=== PATIENT | female | born 1975 | race African-American/Black ===

== ENCOUNTER 2016-09-13 23:30 | Emergency (ER) | payer OTHER ==
[2016-09-13 23:43] VITALS: TEMP 97.8; BMI 29.5
[2016-09-13] MEDS ORDERED: ONDANSETRON 4 MG/2 ML VIAL ONE (23:47)
--- NOTE | 2016-09-14 01:30 | PDOC ---
History of Present Illness - General History Source: Patient Exam Limitations: No Limitations - History of Present Illness Initial Comments: 09/14/16 01:43 The patient is a 41 year old female (8 months ) with significant past medical history of asthma who presents to the ED with sudden onset of dizziness and vomiting prior to arrival. Patient reports around 11pm she was laying in bed when she got up to get some carrots. After laying back down she suddenly felt lightheaded and sat back up. Patient states her lightheadedness worsen after sitting up and she started to vomit. She reports 5 episodes of nonbloody vomit that also includes one episode in the ambulance. EMS administered zofran and patient states she felt better. She denies abdominal pain and diarrhea. Patient also states she was here earlier today because she was having contractions, where she was told she was not dilated and thus sent home. The patient denies fever, chills, cough, SOB, chest pain, and palpitations. The patient denies dysuria, hematuria, urgency, and frequency. Allergies: cephalexin, oxycodone Social History: No alcohol, tobacco, or drug use reported. 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 Emily Salinas <Senia Wynn - Last Filed: 09/14/16 01:43> - General History Source: Patient <Krishan Miller - Last Filed: 09/14/16 05:17> - General Chief Complaint: Lightheaded Stated Complaint: DIZZINESS, VOMITING Time Seen by Provider: 09/14/16 01:16 Past History <Senia Wynn - Last Filed: 09/14/16 01:43> - Past Medical History Asthma: Yes Suicide Attempt (Hx): No - Surgical History Abdominal Surgery: Yes (hernia repair as an infant) - Reproductive History Expected Date of Delivery: 10/05/16 (#): 3 Para: 1 Cervical CA: No Dysfunctional Uterine Bleeding: No Ectopic : No Endometrial CA: No Endometriosis: No Ovarian CA: No PID: No Polycystic Ovaries: No Therapeutic (s) & number: Yes (X1) Tubal Ligation: No Uterine Fibroids: No - Immunization History Immunization Up to Date: Yes - Psycho/Social/Smoking Cessation Hx Anxiety: Yes Suicidal Ideation: No Smoking Status: No Smoking History: Never smoked Have you smoked in the past 12 months: No Number of Cigarettes Smoked Daily: 0 Hx Alcohol Use: No Drug/Substance Use Hx: No Substance Use Type: Alcohol <Krishan Miller - Last Filed: 09/14/16 05:17> - Past Medical History Allergies/Adverse Reactions: Allergies Allergy/AdvReac Type Severity Reaction Status Date / Time cephalexin Allergy Severe Verified 09/13/16 23:40 oxycodone AdvReac Severe Itching Verified 09/13/16 23:40 cefilexin Allergy Severe Uncoded 09/13/16 23:40 Home Medications: Ambulatory Orders Folic Acid 0.8 mg PO DAILY 04/18/16 Pnv95/Ferrous Fumarate/FA [ Caplet] 1 each PO DAILY 04/18/16 Albuterol Sulfate Inhaler - [Ventolin Hfa Inhaler -] 2 inh PO Q4H PRN #1 inh 09/18 Fluticasone/Salmeterol [Advair Hfa 45-21 Mcg Inhaler] 2 inh PO Q12H #1 inhaler 07/04/16 Metoclopramide HCl [Reglan -] 10 mg PO TID #21 tablet 09/14/16 Nitrofurantoin Monohyd/M-Cryst [Macrobid] 100 mg PO BID #14 capsule 09/14/16 Review of Systems - Review of Systems Able to Perform ROS?: Yes Comments:: 09/14/16 01:43 CONSTITUTIONAL: +generalized weakness Absent: fever, no chills, no fatigue EYES: Absent: visual changes ENT: Absent: ear pain, no sore throat CARDIOVASCULAR: +lightheadedness Absent: chest pain, no palpitations RESPIRATORY: Absent: cough, no SOB GI: +vomiting Absent: abdominal pain, no constipation, no diarrhea GENITOURINARY: Absent: dysuria, no frequency, no hematuria MUSKULOSKELETAL: Absent: back pain, no arthralgia, no myalgia SKIN: Absent: rash NEURO: Absent: headache <Senia Wynn - Last Filed: 09/14/16 01:43> *Physical Exam - Vital Signs Last Vital Signs Temp Pulse Resp BP Pulse Ox 97.8 F 90 16 106/59 98 09/13/16 23:41 09/13/16 23:41 09/13/16 23:41 09/13/16 23:41 09/13/16 23:41 - Physical Exam Comments: 09/14/16 01:43 GENERAL: Well-appearing, well-nourished. No apparent distress. HEENT: Normocephalic, atraumatic. PERRL, EOM intact. CARDIOVASCULAR: Normal S1, S2. Regular rate and rhythm. PULMONARY: Clear to auscultation bilaterally. ABDOMEN: Soft, gravid, non-tender. EXTREMITIES: Normal ROM in all four extremities. No gross deformities. SKIN: Warm, dry. No rash NEUROLOGICAL: No focal neurological deficits. <Senia Wynn - Last Filed: 09/14/16 01:43> - Vital Signs Last Vital Signs Temp Pulse Resp BP Pulse Ox 97.8 F 90 16 106/59 98 09/13/16 23:41 09/13/16 23:41 09/13/16 23:41 09/13/16 23:41 09/13/16 23:41 <Krishan Miller - Last Filed: 09/14/16 05:17> ED Treatment Course - LABORATORY CBC & Chemistry Diagram: 09/14/16 02:58 09/14/16 02:58 <Krishan Miller - Last Filed: 09/14/16 05:17> Medical Decision Making - Medical Decision Making 09/14/16 05:17 Dr. Miller: The scribe's documentation has been prepared under my direction and personally reviewed by me in its entirery. I confirm that the note above accurately reflects all work, treatment, procedures, and medical decision making performed by me. <Krishan Miller - Last Filed: 09/14/16 05:17> *DC/Admit/Observation/Transfer - Attestations Scribe Attestion: 09/14/16 01:44 Documentation prepared by Senia Wynn, acting as medical assembly for Krishan Miller MD <Senia Wynn - Last Filed: 09/14/16 01:43> - Discharge Dispostion Admit: No <Krishan Miller - Last Filed: 09/14/16 05:17> Diagnosis at time of Disposition: UTI (urinary tract infection) Qualifiers: Urinary tract infection type: site unspecified Hematuria presence: without hematuria Qualified Code(s): N39.0 - Urinary tract infection, site not specified - Discharge Dispostion Disposition: HOME Condition at time of disposition: Stable - Prescriptions Prescriptions: Nitrofurantoin Monohyd/M-Cryst [Macrobid] 100 mg PO BID #14 capsule Metoclopramide HCl [Reglan -] 10 mg PO TID #21 tablet - Referrals Referrals: Emily Salinas MD [Primary Care Provider] - - Patient Instructions Printed Discharge Instructions: DI for Urinary Tract Infection (UTI), Medications and
[2016-09-14] MEDS ORDERED: SODIUM CHLORIDE 1,000 ML IV STA (01:40)
[2016-09-14 02:05] LABS: URINE APPEARANCE SL CLOUDY; URINE BILIRUBIN NEGATIVE (NEGATIVE); URINE BLOOD NEGATIVE (NEGATIVE); URINE COLOR LT. YELLOW; URINE GLUCOSE (UA) NEGATIVE (NEGATIVE); URINE KETONE NEGATIVE (NEGATIVE); URINE NITRITE NEGATIVE (NEGATIVE); URINE PROTEIN NEGATIVE (NEGATIVE); URINE UROBILINOGEN 0.2 E.U/dl E.U./dl (0.2-1.0)
[2016-09-14 02:07] LABS: URINE LEUK ESTERASE TRACE (NEGATIVE)
[2016-09-14 02:35] LABS: URINE BACTERIA RARE /hpf (NONE SEEN); URINE MUCUS RARE; URINE RBC 1 /hpf (0-3); URINE WBC 7 /hpf (3-5)
[2016-09-14 03:31] LABS: BASOPHIL 0.1 % (0-2.0); EOSINOPHIL 0.4 % (0-4.5); MCH 27.4 pg (25.7-33.7); MCHC 31.6 g/dl (32.0-36.0); MEAN CELL VOLUME 86.7 fl (80-96); MEAN PLT VOLUME 9.9 fl (7.5-11.1); NEUTROPHILS 78.6 % (42.8-82.8); PLATELET COUNT 160 K/MM3 (134-434); RDW 14.3 % (11.6-15.6); WHITE BLOOD COUNT 6.8 K/mm3 (4.0-10.0)
[2016-09-14 03:58] LABS: ALK PHOS 159 U/L (45-117); ANION GAP 14 (8-16); BILIRUBIN,TOTAL 0.4 mg/dL (0.2-1.0); CO2 22 mmol/L (21-32); CREATININE 0.7 mg/dL (0.55-1.02); GLUCOSE,RANDOM 108 mg/dL (74-106); MAGNESIUM 1.7 mg/dL (1.8-2.4); SGOT/AST 15 U/L (15-37); SGPT/ALT 16 U/L (12-78); TOT PROT 6.8 g/dl (6.4-8.2)
[2016-09-14] MEDS ORDERED: NITROFURANTOIN MACROCRYSTAL 50 MG CAPSULE (FP) ONE (05:12)
[2016-09-14] MEDS ORDERED: NITROFURANTOIN MACROCRYSTAL 50 MG CAPSULE (FP) PO SCH (05:15)
[2016-09-14] MEDS ORDERED: NITROFURANTOIN MACROCRYSTAL 50 MG CAPSULE (FP) PO ONE (05:18)
[2016-09-14 05:55] VITALS: BP 105/60; PULSE 74
== END 2016-09-14 05:29 | disposition home or self-care (01) ==
LOC: JER 23:30
DX: O23.43 Unspecified infection of urinary tract in pregnancy, third trimester (principal); Z3A.35 35 weeks gestation of pregnancy
CPT/HCPCS: 36415; 80053; 81003; 81015; 83690; 83735; 84703; 85025; 87086; 99282-25

== ENCOUNTER 2016-09-18 16:51 | Emergency (ER) | payer OTHER ==
[2016-09-18 16:57] VITALS: BP 144/90; PULSE 76; TEMP 97.1; BMI 31.7
[2016-09-18 19:08] LABS: BASOPHIL 0.4 % (0-2.0); EOSINOPHIL 1.6 % (0-4.5); MCH 27.5 pg (25.7-33.7); MCHC 31.7 g/dl (32.0-36.0); MEAN CELL VOLUME 86.6 fl (80-96); MEAN PLT VOLUME 9.3 fl (7.5-11.1); NEUTROPHILS 63.2 % (42.8-82.8); PLATELET COUNT 151 K/MM3 (134-434); RDW 14.2 % (11.6-15.6); WHITE BLOOD COUNT 4.5 K/mm3 (4.0-10.0)
--- NOTE | 2016-09-18 19:27 | PDOC ---
History of Present Illness - General History Source: Patient Exam Limitations: No Limitations - History of Present Illness Initial Comments: 09/18/16 19:37 The patient is a 41 year old female who is with history of asthma who returns to the ED for intermittent dizziness/lightheadedness. The patient was seen 4 days ago for lightheadedness with nausea and vomiting. She was discharged home with Macrobid for a UTI. Today she again became lightheaded with associated right ear ringing and "numbness" and chest discomfort with radiation to the back. She also complains of intermittent chills, no fever. She denies any nausea, vomiting, or diarrhea since her last ED visit. She denies cough, wheezing, or shortness of breath. She denies any vaginal bleeding or abdominal cramping. SALES REPRESENTATIVE UNIFORMS: Dr. Emily Salinas <Charlene Birmingham - Last Filed: 09/18/16 20:58> <Jael Lockwood - Last Filed: 09/18/16 21:44> - General Chief Complaint: Lightheaded Stated Complaint: 32WKS/LIGHTHEADED Time Seen by Provider: 09/18/16 18:05 Past History <Charlene Birmingham - Last Filed: 09/18/16 20:58> - Past Medical History Asthma: Yes Suicide Attempt (Hx): No - Surgical History Abdominal Surgery: Yes (hernia repair as an ) - Reproductive History Expected Date of Delivery: 10/05/16 (#): 3 Para: 1 Cervical CA: No Dysfunctional Uterine Bleeding: No Ectopic : No Endometrial CA: No Endometriosis: No Ovarian CA: No PID: No Polycystic Ovaries: No Therapeutic (s) & number: Yes (X1) Tubal Ligation: No Uterine Fibroids: No - Immunization History Immunization Up to Date: Yes - Psycho/Social/Smoking Cessation Hx Anxiety: Yes Suicidal Ideation: No Smoking Status: No Smoking History: Never smoked Have you smoked in the past 12 months: No Number of Cigarettes Smoked Daily: 0 Information on smoking cessation initiated: No Hx Alcohol Use: No Drug/Substance Use Hx: No Substance Use Type: Alcohol <Jael Lockwood - Last Filed: 09/18/16 21:44> - Past Medical History Allergies/Adverse Reactions: Allergies Allergy/AdvReac Type Severity Reaction Status Date / Time oxycodone Allergy Severe Itching Verified 09/18/16 16:54 Penicillins Allergy Severe Itching Verified 09/18/16 16:54 shellfish derived Allergy Severe Swelling Verified 09/18/16 16:54 cefalexin Allergy Severe Itching Uncoded 09/18/16 16:54 Home Medications: Ambulatory Orders Folic Acid 0.8 mg PO DAILY 04/18/16 Nitrofurantoin Monohyd/M-Cryst [Macrobid] 100 mg PO BID #14 capsule 09/14/16 Albuterol Sulfate Inhaler - [Ventolin Hfa Inhaler -] 1 puff IH PRN PRN 09/15/16 Vitamins (Sjr) - 1 tab PO DAILY 09/15/16 Review of Systems - Review of Systems Able to Perform ROS?: Yes Comments:: 09/18/16 19:41 CONSTITUTIONAL: Absent: fever, chills, diaphoresis, generalized weakness, malaise, loss of appetite HEENT: Absent: rhinorrhea, nasal congestion, throat pain, throat swelling, difficulty swallowing, mouth swelling, ear pain, eye pain, visual Changes CARDIOVASCULAR: Present: chest discomfort, lightheadedness/dizziness Absent: chest pain, syncope, palpitations, irregular heart rate, peripheral edema RESPIRATORY: Absent: cough, shortness of breath, dyspnea with exertion, orthopnea, wheezing, stridor, hemoptysis GASTROINTESTINAL: Absent: abdominal pain, abdominal distension, nausea, vomiting, diarrhea, constipation, melena, hematochezia GENITOURINARY: Absent: dysuria, frequency, urgency, hesitancy, hematuria, flank pain, genital pain MUSCULOSKELETAL: Absent: myalgia, arthralgia, joint swelling SKIN: Absent: rash, itching, pallor HEMATOLOGIC/IMMUNOLOGIC: Absent: easy bleeding, easy bruising, lymphadenopathy, frequent infections ENDOCRINE: Absent: unexplained weight gain, unexplained weight loss, heat intolerance, cold intolerance NEUROLOGIC: Present: lightheadedness/dizziness, right ear tinnitus with "numbness" sensation Absent: dizziness, unsteady gait, seizure, mental status changes, bladder or bowel incontinence PSYCHIATRIC: Absent: anxiety, depression, suicidal or homicidal ideation, hallucinations <Charlene Birmingham - Last Filed: 09/18/16 20:58> *Physical Exam - Vital Signs Last Vital Signs Temp Pulse Resp BP Pulse Ox 97.1 F L 76 18 144/90 100 09/18/16 16:54 09/18/16 16:54 09/18/16 16:54 09/18/16 16:54 09/18/16 16:54 - Physical Exam Comments: 09/18/16 19:47 GENERAL: Well developed, well nourished. Awake and alert. No acute distress. HEENT: Normocephalic, atraumatic. PERRLA, EOMI. No conjunctival pallor. Sclera are non- icteric. Moist mucous membranes. Oropharynx is clear. NECK: Supple. Full ROM. No JVD. Carotid pulses 2+ and symmetric, without bruits. No thyromegaly. No lymphadenopathy. CARDIOVASCULAR: Regular rate and rhythm. No murmurs, rubs, or gallops. Distal pulses are 2+ and symmetric. PULMONARY: No evidence of respiratory distress. Lungs clear to auscultation bilaterally. No wheezing, rales or rhonchi. ABDOMINAL: Protuberant abdomen. Non-tender. Non-distended. No rebound or guarding. No organomegaly. Normoactive bowel sounds. MUSCULOSKELETAL Normal range of motion at all joints. No bony deformities or tenderness. No CVA tenderness. EXTREMITIES: No cyanosis. No clubbing. No edema. No calf tenderness. SKIN: Warm and dry. Normal capillary refill. No rashes. No jaundice. NEUROLOGICAL: Alert, awake, appropriate. Cranial nerves 2-12 intact. No deficits to light touch and temperature in face, upper extremities and lower extremities. No motor deficits in the in face, upper extremities and lower extremities. Normoreflexic in the upper and lower extremities. Normal speech. Gait deferred. PSYCHIATRIC: Cooperative. Good eye contact. Appropriate mood and affect. <Charlene Birmingham - Last Filed: 09/18/16 20:58> - Vital Signs Last Vital Signs Temp Pulse Resp BP Pulse Ox 97.1 F L 76 18 144/90 100 09/18/16 16:54 09/18/16 16:54 09/18/16 16:54 09/18/16 16:54 09/18/16 16:54 <Jale Lockwood - Last Filed: 09/18/16 21:44> ED Treatment Course - LABORATORY CBC & Chemistry Diagram: 09/18/16 19:00 09/18/16 19:00 - ADDITIONAL ORDERS Additional order review: Laboratory Results 09/18/16 19:00 WBC 4.5 RBC 4.02 Hgb 11.0 Hct 34.8 MCV 86.6 MCHC 31.7 L RDW 14.2 Plt Count 151 MPV 9.3 Neutrophils % 63.2 Lymphocytes % 27.1 Monocytes % 7.7 Eosinophils % 1.6 D Basophils % 0.4 09/18/16 19:00 RBC 4.02 MCV 86.6 MCHC 31.7 L RDW 14.2 MPV 9.3 Neutrophils % 63.2 Lymphocytes % 27.1 Monocytes % 7.7 Eosinophils % 1.6 D Basophils % 0.4 <Charlene Birmingham - Last Filed: 09/18/16 20:58> - LABORATORY CBC & Chemistry Diagram: 09/18/16 19:00 09/18/16 19:00 - ADDITIONAL ORDERS Additional order review: 09/18/16 19:00 RBC 4.02 MCV 86.6 MCHC 31.7 L RDW 14.2 MPV 9.3 Neutrophils % 63.2 Lymphocytes % 27.1 Monocytes % 7.7 Eosinophils % 1.6 D Basophils % 0.4 <Jael Lockwood - Last Filed: 09/18/16 21:44> Medical Decision Making - Medical Decision Making 09/18/16 20:59 The patient states that she would like to go home since we have not found the cause of her dizziness. She wants to sign out AGAINST MEDICAL ADVICE. She has been given all of her results thus far and states she will follow up with her SCREEN PRINTER HELPER tomorrow. <Charlene Birmingham - Last Filed: 09/18/16 20:58> - Medical Decision Making 09/18/16 21:38 41-year-old female who is 33 weeks presents with intermittent dizziness over the past week. She states that she has numbness on her right ear and that she experiences tinnitus in her ear when she eats. she denies any anterior chest pain, shortness of breath, fever, nausea, vomiting or diarrhea, pelvic cramping or vaginal bleeding -she has an appt tomorrow with her SALES REPRESENTATIVE UNIFORMS -ekg is nsr @ 80 bpm cbc is wnl chemistry unremarkable pt left AMA before cardiac enzymes are back <Jael Lockwood - Last Filed: 09/18/16 21:44> *DC/Admit/Observation/Transfer - Attestations Scribe Attestion: 09/18/16 19:48 Documentation prepared by Charlene Birmingham, acting as associate medical director for Jael Lockwood MD. <Charlene Birmingham - Last Filed: 09/18/16 20:58> <Jael Lockwood - Last Filed: 09/18/16 21:44> Diagnosis at time of Disposition: Dizziness - Discharge Dispostion Disposition: AGAINST MEDICAL ADVICE
[2016-09-18] MEDS ORDERED: SODIUM CHLORIDE 1,000 ML IV STA (19:38)
[2016-09-18 19:51] LABS: ALBUMIN 2.8 g/dl (3.4-5.0); ANION GAP 8 (8-16); BILIRUBIN,TOTAL 0.8 mg/dL (0.2-1.0); CALCIUM 9.2 mg/dL (8.5-10.1); CO2 24 mmol/L (21-32); CREATININE 0.6 mg/dL (0.55-1.02); GLUCOSE,RANDOM 73 mg/dL (74-106); SGPT/ALT 17 U/L (12-78)
[2016-09-18 19:52] LABS: ALK PHOS 173 U/L (45-117); TOT PROT 6.7 g/dl (6.4-8.2)
[2016-09-18 19:57] LABS: SGOT/AST 29 U/L (15-37)
[2016-09-18 21:04] LABS: TROPONIN I < 0.02 ng/ml (0.00-0.05)
--- NOTE | 2016-09-19 16:22 | EKG ---
Test Reason : Blood Pressure : / mmHG Vent. Rate : 080 BPM Atrial Rate : 080 BPM P-R Int : 162 ms QRS Dur : 072 ms QT Int : 366 ms P-R-T Axes : 022 014 027 degrees QTc Int : 422 ms NORMAL SINUS RHYTHM NORMAL ECG WHEN COMPARED WITH ECG OF 11-JAN-2008 18:26, NO SIGNIFICANT CHANGE WAS FOUND Confirmed by ELHAM MARTINEZ MD ([id number]) on 09/19/2016 4:21:26 PM Referred By: Confirmed By:ELHAM MARTINEZ MD
== END 2016-09-18 21:42 | disposition left against medical advice (07) ==
LOC: JER 16:51
PROC: 3E0337Z Introduction of Electrolytic and Water Balance Substance into Peripheral Vein, Percutaneous Approach (ICD-10-PCS; principal; 2016-09-18)
DX: O99.89 Other specified diseases and conditions complicating pregnancy, childbirth and the puerperium (principal); R42 Dizziness and giddiness; Z3A.32 32 weeks gestation of pregnancy
CPT/HCPCS: 36415; 80053; 82550; 82553; 84484; 85025; 93005; 93010; 99282-25

== ENCOUNTER 2016-10-15 08:10 | Inpatient (IN) | payer OTHER ==
[2016-10-15] MEDS ORDERED: ELECTROLYTE-148 SOLN 1,000 ML IV SCH ×2 (08:30)
[2016-10-15] MEDS ORDERED: ELECTROLYTE-148 SOLN 500 ML IV ONE (08:30)
[2016-10-15] MEDS ORDERED: SODIUM PHOSPHATE/NA BIPHOS 133 ML ENEMA PR ONE (08:33)
[2016-10-15 08:58] LABS: BASOPHIL 0.2 % (0-2.0); EOSINOPHIL 0.3 % (0-4.5); MCH 28.5 pg (25.7-33.7); MCHC 32.7 g/dl (32.0-36.0); MEAN CELL VOLUME 87.1 fl (80-96); MEAN PLT VOLUME 9.7 fl (7.5-11.1); NEUTROPHILS 81.7 % (42.8-82.8); PLATELET COUNT 133 K/MM3 (134-434); RDW 14.7 % (11.6-15.6); WHITE BLOOD COUNT 7.6 K/mm3 (4.0-10.0)
[2016-10-15 09:00] VITALS: BMI 31.6
[2016-10-15 09:11] LABS: INR 1.02 (0.82-1.09); PROTHROMBIN TIME (PATIENT) 11.2 SEC (9.98-11.88)
[2016-10-15 09:13] LABS: ACTIVATED PTT 28.6 SECONDS (26.9-34.4)
[2016-10-15] MEDS ORDERED: FENTANYL/BUPIVACAINE/NS/PF - PCEA - 50 ML DISP.SYRIN EP SCH (09:15)
[2016-10-15 09:18] LABS: CALCIUM 8.7 mg/dL (8.5-10.1); CREATININE 0.7 mg/dL (0.55-1.02)
[2016-10-15] MEDS ORDERED: CITRIC ACID/SODIUM CITRATE 30 ML UNIT-DOSE CUP PO ONE (10:00)
--- NOTE | 2016-10-15 10:16 | HP ---
Past Medical History - Primary Care Physician PCP:: Mary Lockhart - Admission Chief Complaint: 41 yrs 40.2 weeks iup, previous c/section onset of LP since 3.00am , wants trial of History of Present Illness: pnc at [address] [place] [address] .wt gain 36 lbs work up : A Pos,, Hbsag neg , Rpr neg, Rubella pos, Quant neg, GBS neg , Hiv neg , ! hr Gtt 123 h/o Genetic counselling for AMA, , NT screen: LowPapp, A, , modified sequential neg serial sono for growth are done last sono : 10/11/16 , Vx m Post Placenta,, EFW 8'8", , JESSICA 8.59 , Bpp8/8. pt was evaluated i l&d for labor asses number of times History Source: Patient, Medical Record Limitations to Obtaining History: No Limitations - Past Medical History LIVING SUPERVISOR: No: CVA, Migraine, Seizure Cardiovascular: No: HTN, Murmur Pulmonary: Yes: Asthma Gastrointestinal: Yes: Constipation Renal/: Yes: UTI (rx during ) ...: 3 ...Para: 1 ...Term: 1 (06/15/2010 LFTCS due to non reassuring FHR , 7'8" , [facility]) ...: 0 ...Spon : 0 ...Induced : 1 ...Multiple Gestation: 0 ...LMP: 01/06/16 ... Weeks Gestation by Dates: 40.3 ...EDC by Dates: 10/12/16 ...EDC by Sono: 10/13/16 (40.2 weeks ) Heme/Onc: Yes: Anemia Infectious Disease: No: STD's Endocrine: No: Diabetes Insipidus, Diabetes Mellitus, Hypothyroidism (TFT during pregn normal) - Past Surgical History Past Surgical History: Yes: (06/15/2010) Hx Myomectomy: No Hx Transabdominal Cerclage: No - Smoking History Smoking history: Smoker current status UNK Have you smoked in the past 12 months: No Aproximately how many cigarettes per day: 0 - Alcohol/Substance Use Hx Alcohol Use: No History of Substance Use: reports: None Home Medications - Allergies Allergies/Adverse Reactions: Allergies Allergy/AdvReac Type Severity Reaction Status Date / Time oxycodone Allergy Severe Itching Verified 10/11/16 12:37 Penicillins Allergy Severe Itching Verified 10/11/16 12:37 shellfish derived Allergy Severe Swelling Verified 10/11/16 12:37 cefalexin Allergy Severe Itching Uncoded 10/11/16 12:37 - Home Medications Home Medications: Ambulatory Orders Folic Acid 0.8 mg PO DAILY 04/18/16 Vitamins (Sjr) - 1 tab PO DAILY 09/15/16 Ferrous Sulfate [Feosol] 325 mg PO DAILY 10/07/16 Fluticasone/Salmeterol [Advair Hfa 45-21 Mcg Inhaler] 1 inh PO DAILY 10/07/16 Physical Exam - Maternity Vital Signs: Vital Signs Temperature 97.4 F L 10/15/16 08:48 Pulse Rate 88 10/15/16 09:00 Respiratory Rate 20 10/15/16 09:00 Blood Pressure 118/69 10/15/16 09:00 O2 Sat by Pulse Oximetry (%) Constitutional: Yes: Well Nourished, Moderate Distress Eyes: Yes: WNL HENT: Yes: WNL, Normocephalic Neck: Yes: WNL Cardiovascular: Yes: WNL, Regular Rate and Rhythm Lungs: Clear to auscultation Breast(s): Yes: WNL - Abdominal Exam/OB Fundal Height: 40 Number of Fetuses: Single Presentation: Vertex Contractions: Yes Regularity: Irregular (6-7 min) Intensity: Moderate Monitor Mode: External Heart Rate (range): 120--130 Heart Rate Location: [facility] Category: II Accelerations: Uniform Decelerations: Variable (zenith 60 bpm at 8.34 am) - Vaginal Exam/OB Vaginal Bleediing: No Speculum Exam: No Effacement (%): 5 Amniotic Membrane Status: Intact Presentation: Vertex/Position (exam at 8.15am) Station: -2 - Physical Exam Musculoskeletal: Yes: WNL Extremities: Yes: WNL. No: Calf Tenderness Edema: Yes Edema: LLE: 1+, RLE: 1+ Integumentary: Yes: Incision (old pfannensteil scar), Tattoos Deep Tendon Reflex Grade: Normal +2 ...Motor Strength: WNL Psychiatric: Yes: WNL - Labs Lab Results: CBC, BMP 10/15/16 08:30 10/15/16 08:30 Laboratory Tests 10/15/16 08:30 INR 1.02 PTT (Actin FS) 28.6 Problem List - Problems (1) AMA (advanced maternal age) multigravida 35+ Code(s): O09.529 - SUPERVISION OF ELDERLY MULTIGRAVIDA, UNSPECIFIED TRIMESTER Qualifiers: Trimester: third trimester Qualified Code(s): O09.523 - Supervision of elderly multigravida, third trimester (2) Previous section Code(s): Z98.89 - OTHER SPECIFIED POSTPROCEDURAL STATES * DO NOT USE * (3) Post term over 40 weeks Code(s): O48.0 - POST-TERM (4) Desires (vaginal after ) trial Code(s): O34.21 - MATERNAL CARE FOR SCAR FROM PREVIOUS * DO NOT USE * Assessment/Plan 41 yrs , 40.2 weeks , previous c/s , is in labor. plan pt requuests trial epidural desired
--- NOTE | 2016-10-15 10:36 | PN ---
Progress Note, Labor Vaginal Exam #1 Labor Exam Date: 10/15/16 Labor Exam Time: 09:45 Heart Rate (range): 120-130 Dilatation: 6 Effacement (%): 100 Amniotic Membrane Status: Ruptured (AROM, no fluid, scalp electrode applied) Presentation: Vertex/Position Station: -2 Remarks: fhr cat-2 uc irregular 6-7 min epidural received at 9.30 am Selected Entries 10/15/16 09:00 Pulse Rate 88 Blood Pressure 118/69 Vaginal Exam #2 Labor Exam Date: 10/15/16 Labor Exam Time: 10:06 Heart Rate (range): 120-90 Dilatation: 6 Effacement (%): 100 Amniotic Membrane Status: Ruptured Presentation: Vertex/Position Station: -2 Remarks: FHR cat-2 , variable decel with late component zenih at 60 , duration 124 sec . position changed, IV fluid increased , O2 given uc are irregular 5-6 min V/S BP 71/37, pulse 90 bpm anesthesiologist notified trial abandoned Imp :Post Term Pregn, Failed Trial, Non Reassuring FHR Plan delivery by Repeat c/section
[2016-10-15 11:32] LABS: ARTERIAL BLOOD GAS BASE EXCESS -1.7 meq/l (-2-2); ARTERIAL BLOOD GAS HCO3 26.1 meq/L (22-26); ARTERIAL BLOOD GAS pH 7.27 (7.35-7.45)
[2016-10-15 11:35] LABS: ARTERIAL BLOOD GAS BASE EXCESS -2.4 meq/l (-2-2); ARTERIAL BLOOD GAS pH 7.34 (7.35-7.45)
[2016-10-15 11:37] LABS: PT. ON O2? no
[2016-10-15 11:38] LABS: ARTERIAL BLOOD GAS PO2 16.8 mmHg (80-100)
[2016-10-15 11:39] LABS: ARTERIAL BLD GAS O2 SATURATION 23.7 % (90-98.9)
[2016-10-15 11:40] LABS: PT. ON O2? no
[2016-10-15 11:41] LABS: ARTERIAL BLOOD GAS PO2 27.9 mmHg (80-100)
[2016-10-15] MEDS ORDERED: IBUPROFEN 800 MG/8 ML IJ IVPB PRN (12:02)
[2016-10-15] MEDS ORDERED: METHYLERGONOVINE MALEATE 0.2 MG/1 ML AMP IM PRN (12:02)
[2016-10-15] MEDS ORDERED: SENNOSIDES/DOCUSATE COMBO (SENNA PLUS) TABLET (UD) PO PRN (12:02)
--- NOTE | 2016-10-15 12:23 | OP ---
Operative Note - Note: Operative Date: 10/15/16 Pre-Operative Diagnosis: 40.2 weeks, Failed , Nonreassuring FHR Operation: Repeat LFTC/Section Findings: 11.11 am Baby Boy, ROP position, cord around neckx1, 9/9, Wt 8'2" No fluid , terminal thick meconium noted both tubes & ovaries normal . Dr Schmitt manufacturing design engineer was present in the room Surgeon: Mary Lockhart Program Evaluator: Jonh Bejarano Anesthesiologist/RN MIDWIFE: Mejia Palacio Anesthesia: Spinal Specimens Removed: cord segment for cord blood gas. cord blood sample. placenta Estimated Blood Loss (mls): 800 Drains, Volume Out (mls): 200 (gambino output, radha color urine ) Fluid Volume Replaced (mls): 1,100 (IV Clindamycin 900 mg prior to incision was given ) Operative Report Dictated: Yes
--- NOTE | 2016-10-15 12:40 | PN ---
Delivery - Delivery Section: Repeat, Low Flap Transverse (Indication : 40.2 weeks, Previous C/Section, failed , Non Reassuring FHR) Type of Anesthesia: Epidural EBL (cc): 800 (gambino out put 200ml intraop radha color ) Delivery, Single - Stages of Labor Date 1st Stage Initiatied: 10/15/16 Time 1st Stage Initiated: 03:00 Date of Delivery: 10/15/16 Time of Delivery: 11:11 Date Placenta Delivered: 10/15/16 Time Placenta Delivered: 11:12 Placenta: Yes: Manual Removal, Uterine Exploration - Condition of Utilization Supervisor/Radio Division Lieutenant Present: Yes Name: Groening,Kala Gender: Male Weight: 8 lb 2 oz Position: Right, OP Total Hours ROM (Hrs/Mins): 1hr 27min - 1 Minute Total Score: 9 5 Minutes Total Score: 9 - [place] Feeding Plan Initial Plan: Exclusive throughout hospitalization Remarks - Remarks Remarks: 41 yrs , 40.2 weeks , previous c/section, admitted in labor PNC at [address] [place] [address] GBS neg epidural labor analgesia was given recurrent variable decels were noted , non reaasuring FHR diagnosed IV Clindamycin 900 mg prior to incision was given Intraop course uneventful
[2016-10-15] MEDS: D5W-LR W/ 20 UNITS OXYTOCIN 1,000 ML IV SCH ×2 (12:45→20:19)
[2016-10-15] MEDS: CLINDAMYCIN 600MG PREMIX IVPB 50 ML IVPB SCH (18:14)
[2016-10-15] MEDS: FLUTICASONE/SALMETEROL 100 MCG/50 MCG DISKUS IH SCH (22:23)
[2016-10-16] MEDS: CLINDAMYCIN 600MG PREMIX IVPB 50 ML IVPB SCH ×2 (01:14→10:25)
[2016-10-16 07:40] LABS: BASOPHIL 0.2 % (0-2.0); EOSINOPHIL 0.5 % (0-4.5); MCH 28.7 pg (25.7-33.7); MCHC 33.2 g/dl (32.0-36.0); MEAN CELL VOLUME 86.6 fl (80-96); MEAN PLT VOLUME 9.4 fl (7.5-11.1); NEUTROPHILS 78.4 % (42.8-82.8); PLATELET COUNT 118 K/MM3 (134-434); RDW 14.7 % (11.6-15.6); WHITE BLOOD COUNT 7.4 K/mm3 (4.0-10.0)
--- NOTE | 2016-10-16 08:03 | PN ---
Post Progress Note - Subjective Subjective: no c/o pain . not voided since gambino is taken out Post Day: 1 Type of Delivery: Repeat C/S Vital Signs: Vital Signs Temperature 98.2 F 10/16/16 05:22 Pulse Rate 87 10/16/16 05:22 Respiratory Rate 20 10/16/16 07:00 Blood Pressure 111/65 10/16/16 05:22 O2 Sat by Pulse Oximetry (%) 100 10/15/16 10:25 Breast Exam: Yes: Soft, Other (BF ). No: Engorged Uterus: Yes: Fundus Firm, Fundus below umbilicus, Non-tender Incision: Yes: Dressing dry and intact. No: Redness, Oozing Abdomen/GI: Yes: Abdomen soft (bs active ), Tolerating PO (clear liqiuds ). No : Abdominal Distention, Tender, Passing flatus Lochia: Yes: Rubra Lochia, amount: Moderate Extremities: Yes: Calves non-tender Perineum: Yes: Intact Activity: Other (oob in chair) - Labs Labs: CBC WBC 7.4 K/mm3 (4.0-10.0) 10/16/16 06:50 RBC 3.71 M/mm3 (3.60-5.2) 10/16/16 06:50 Hgb 10.7 GM/dL (10.7-15.3) 10/16/16 06:50 Hct 32.1 % (32.4-45.2) L 10/16/16 06:50 MCV 86.6 fl (80-96) 10/16/16 06:50 MCHC 33.2 g/dl (32.0-36.0) 10/16/16 06:50 RDW 14.7 % (11.6-15.6) 10/16/16 06:50 Plt Count 118 K/MM3 (134-434) L 10/16/16 06:50 MPV 9.4 fl (7.5-11.1) 10/16/16 06:50 Neutrophils % 78.4 % (42.8-82.8) 10/16/16 06:50 Lymphocytes % 13.4 % (8-40) 10/16/16 06:50 Monocytes % 7.5 % (3.8-10.2) 10/16/16 06:50 Eosinophils % 0.5 % (0-4.5) 10/16/16 06:50 Basophils % 0.2 % (0-2.0) 10/16/16 06:50 Other Findings, Remarks: maik out put adequate Problem List - Problems (1) AMA (advanced maternal age) multigravida 35+ Code(s): O09.529 - SUPERVISION OF ELDERLY MULTIGRAVIDA, UNSPECIFIED TRIMESTER Qualifiers: Trimester: third trimester Qualified Code(s): O09.523 - Supervision of elderly multigravida, third trimester (2) Previous section Code(s): Z98.89 - OTHER SPECIFIED POSTPROCEDURAL STATES * DO NOT USE * (3) Post term over 40 weeks Code(s): O48.0 - POST-TERM (4) Desires (vaginal after ) trial Code(s): O34.21 - MATERNAL CARE FOR SCAR FROM PREVIOUS * DO NOT USE * Assessment/Plan stable plan ct po care . encourage ambulation, po fluids , deep breathing
[2016-10-16] MEDS: PRENATAL VITAMINS W/ FOLIC ACID TABLET (FP) PO SCH (09:01)
--- NOTE | 2016-10-16 09:42 | OP ---
DATE OF OPERATION: 10/15/2016 PREOPERATIVE DIAGNOSIS: A 40.2 weeks' failed vaginal after section, nonreassuring heart. OPERATION: Repeat low flap transverse section. SURGEON: Mary Lockhart MD FARM CONTRACTOR BUYER: ERWIN Soto ANESTHESIOLOGIST: Mejia Palacio MD ANESTHESIA: Epidural. FINDINGS: This is a 41-year-old 3, para 1-0-1-1, 40.2 weeks' gestation, presented with onset of labor since 3 a.m. and she was 5 cm dilated., Repeated variable decelerations with late component was noted. Her membranes were ruptured She was 6 cm dilated. She received epidural for labor analgesia. Due to recurrent decelerations, it was decided to deliver the patient by repeat section. PROCEDURE: Abdomen was shaved, prepped. Perez catheter was placed. Patient was taken to the operating room table. Epidural analgesia was converted into epidural anesthesia and then patient was in supine position. Abdomen was painted and draped in the usual manner. Pfannenstiel incision was made through previous scar. Skin, subcutaneous tissue, anterior rectus sheath were incised transversely bleeding points were clamped and cauterized. Rectus muscle was from the rectus sheath. Parietal peritoneum was opened vertically. Bladder Peritoneum was incised transversely and the lower uterine segment was incised transversely. There was no fluid and the baby was delivered from ROP position. Cord around the neck was untangled and the baby was delivered at 11:11 a.m. Cord was clamped, cut. Cord blood was collected immediately. As the baby's head was taken out, oral and nasal suction were done. Baby was handed over to the enforcement officer, Dr. Schmitt, who was present in the room. Apgars were 9 and 9. Baby's weight was 8.'1." Cord segment was collected for the cord blood gases, which was normal and then cord blood was collected. Placenta was removed completely with the membranes. Uterine cavity was cleaned and the incision was closed. First layer was a continuous locking with a Biosyn 0 suture which was taken. Second layer was a continuous intermittent locking with a Biosyn 0 suture which was taken. Hemostasis was noted. There was extension on the left side into the vagina down, which was also sutured in the same manner as the first layer and as the second layer. Visceral peritoneum, bladder peritoneum were closed also with a Biosyn 0 suture. Hemostasis was verified. Both tubes and ovaries were normal. Irrigation was done. The sponge, instrument, and needle count were correct. Then the closure of the abdomen was done. Parietal peritoneum was closed with 0 Vicryl suture. Muscles were approximated together with interrupted suture of the Vicryl 0. Hemostasis was checked underneath the rectus sheath flaps. Then the anterior rectus sheath was closed with 0 Vicryl suture; continuous sutures were taken. The skin was mobilized from underneath scar and hemostasis was checked and subcutaneous tissue. Some interrupted sutures were taken in subcutaneous tissue with 0 Vicryl suture and the skin was approximated with armida. Pressure dressing was given. Gauze was removed from the vagina. ESTIMATED BLOOD LOSS: Was 800 mL. INTRAOPERATIVE URINE OUTPUT: Was 200 mL; it was radha color. She received 900 mg IV clindamycin prior to the incision. Patient is allergic to PENICILLIN. Antonio [id number] MTDD
[2016-10-16] MEDS: FLUTICASONE/SALMETEROL 100 MCG/50 MCG DISKUS IH SCH ×2 (10:23→22:28)
--- NOTE | 2016-10-16 10:31 | PN ---
Progress Note (short form) - Note Progress Note: Anesthesia POD#1 S/P under spinal and duramorph Eating and drinking well,no N/V,good strength in her legs.pain is bearable. VSS No complications to anesthesia seen. Shelby Chao MD.
[2016-10-16] MEDS: ENOXAPARIN NA (PORCINE) 40 MG/0.4 ML DISP.SYRIN SQ SCH (11:31)
[2016-10-16] MEDS: IBUPROFEN 600 MG TABLET (FP) PO PRN ×2 (17:17→23:23)
[2016-10-16] MEDS: SIMETHICONE 80 MG TAB.CHEW (FP) PO PRN ×2 (17:17→23:23)
[2016-10-16] MEDS: ACETAMINOPHEN 325 MG TABLET (FP) PO PRN ×2 (17:17→23:22)
[2016-10-16] MEDS: D5W-LR W/ 20 UNITS OXYTOCIN 1,000 ML IV SCH (18:12)
[2016-10-16] MEDS: FERROUS SO4 325 MG TABLET (FP) PO SCH (21:14)
[2016-10-16] MEDS: BISACODYL 10 MG SUPP.RECT RC PRN (21:17)
[2016-10-17] MEDS: IBUPROFEN 600 MG TABLET (FP) PO PRN ×5 (05:48→22:10)
[2016-10-17] MEDS: SIMETHICONE 80 MG TAB.CHEW (FP) PO PRN ×5 (05:49→22:10)
[2016-10-17] MEDS: ACETAMINOPHEN 325 MG TABLET (FP) PO PRN ×5 (05:49→22:10)
[2016-10-17] MEDS: FLUTICASONE/SALMETEROL 100 MCG/50 MCG DISKUS IH SCH ×2 (09:15→21:11)
[2016-10-17] MEDS: PRENATAL VITAMINS W/ FOLIC ACID TABLET (FP) PO SCH (09:16)
[2016-10-17] MEDS: FERROUS SO4 325 MG TABLET (FP) PO SCH ×2 (09:16→21:14)
[2016-10-17] MEDS: ENOXAPARIN NA (PORCINE) 40 MG/0.4 ML DISP.SYRIN SQ SCH (09:16)
--- NOTE | 2016-10-17 09:16 | PN ---
Post Progress Note - Subjective Subjective: Doing well. Ambulating, voiding, passing flatus, tolerating regular diet, pain well controlled. No N/V/SOB/CP. Post Day: 2 Type of Delivery: Repeat C/S Vital Signs: Vital Signs Temperature 98.3 F 10/17/16 08:33 Pulse Rate 83 10/17/16 08:33 Respiratory Rate 20 10/17/16 08:33 Blood Pressure 121/65 10/16/16 21:10 O2 Sat by Pulse Oximetry (%) 100 10/15/16 10:25 Breast Exam: Yes: Soft Uterus: Yes: Fundus Firm Incision: Yes: Nico intact Abdomen/GI: Yes: Abdomen soft, Passing flatus, Tolerating PO Lochia: Yes: Rubra Lochia, amount: Small Extremities: Yes: Calves non-tender Perineum: Yes: Intact Activity: Ambulating - Labs Labs: CBC WBC 7.4 K/mm3 (4.0-10.0) 10/16/16 06:50 RBC 3.71 M/mm3 (3.60-5.2) 10/16/16 06:50 Hgb 10.7 GM/dL (10.7-15.3) 10/16/16 06:50 Hct 32.1 % (32.4-45.2) L 10/16/16 06:50 MCV 86.6 fl (80-96) 10/16/16 06:50 MCHC 33.2 g/dl (32.0-36.0) 10/16/16 06:50 RDW 14.7 % (11.6-15.6) 10/16/16 06:50 Plt Count 118 K/MM3 (134-434) L 10/16/16 06:50 MPV 9.4 fl (7.5-11.1) 10/16/16 06:50 Neutrophils % 78.4 % (42.8-82.8) 10/16/16 06:50 Lymphocytes % 13.4 % (8-40) 10/16/16 06:50 Monocytes % 7.5 % (3.8-10.2) 10/16/16 06:50 Eosinophils % 0.5 % (0-4.5) 10/16/16 06:50 Basophils % 0.2 % (0-2.0) 10/16/16 06:50 Assessment/Plan 41 P2 POD#2 s/p R C/S, doing well. VSS. AF. Hct stable -Routine post op care -Ambulate -PO pain medication -Regular diet -f/u POD3 CBC -anticipate d/c home POD3/4
[2016-10-17] MEDS ORDERED: DIPHTH,PERTUSS(ACELL),TET 0.5 ML DISP.SYRIN IM ONE (10:00)
[2016-10-17] MEDS ORDERED: INFLUENZA VACCINE 60 MCG/0.5 ML (P/F DISP.SYRIN 16-17) IM ONE (11:00)
[2016-10-17] MEDS ORDERED: PNEUMOC 13-VAL CONJ-DIP CRM/PF 0.5 ML DISP.SYRIN IM ONE (18:00)
[2016-10-17] MEDS ORDERED: PNEUMOCOCCAL 23 VACCINE 0.5 ML VIAL IM ONE (18:00)
[2016-10-17] MEDS: BISACODYL 10 MG SUPP.RECT RC PRN (18:07)
[2016-10-18 06:53] LABS: BASOPHIL 0.2 % (0-2.0); EOSINOPHIL 1.9 % (0-4.5); MCH 28.7 pg (25.7-33.7); MCHC 32.9 g/dl (32.0-36.0); MEAN CELL VOLUME 87.1 fl (80-96); MEAN PLT VOLUME 9.4 fl (7.5-11.1); NEUTROPHILS 75.9 % (42.8-82.8); PLATELET COUNT 125 K/MM3 (134-434); WHITE BLOOD COUNT 6.2 K/mm3 (4.0-10.0)
[2016-10-18] MEDS: PRENATAL VITAMINS W/ FOLIC ACID TABLET (FP) PO SCH (09:33)
[2016-10-18] MEDS: ENOXAPARIN NA (PORCINE) 40 MG/0.4 ML DISP.SYRIN SQ SCH (09:33)
[2016-10-18] MEDS: FLUTICASONE/SALMETEROL 100 MCG/50 MCG DISKUS IH SCH ×2 (09:33→21:56)
--- NOTE | 2016-10-18 09:54 | PN ---
Post Progress Note - Subjective Subjective: c/o abdominal discomfort no nausea or vomiting passed flatus after rectal tube insert last night, felt relieved BM not satisfactory Post Day: 3 Type of Delivery: Repeat C/S Vital Signs: Vital Signs Temperature 97.7 F 10/18/16 08:22 Pulse Rate 92 H 10/18/16 08:22 Respiratory Rate 20 10/18/16 08:22 Blood Pressure 118/78 10/18/16 08:22 O2 Sat by Pulse Oximetry (%) 100 10/15/16 10:25 Breast Exam: Yes: Soft, Other (BF ). No: Engorged Uterus: Yes: Fundus Firm, Fundus below umbilicus Incision: Yes: [place] intact. No: Redness, Oozing Abdomen/GI: Yes: Abdomen soft, Passing flatus, Tolerating PO (diet). No: Abdominal Distention, Tender Lochia: Yes: Rubra Lochia, amount: Moderate Extremities: Yes: Calves non-tender Perineum: Yes: Intact Activity: Ambulating - Labs Labs: CBC WBC 6.2 K/mm3 (4.0-10.0) 10/18/16 06:10 RBC 3.42 M/mm3 (3.60-5.2) L 10/18/16 06:10 Hgb 9.8 GM/dL (10.7-15.3) L 10/18/16 06:10 Hct 29.8 % (32.4-45.2) L 10/18/16 06:10 MCV 87.1 fl (80-96) 10/18/16 06:10 MCHC 32.9 g/dl (32.0-36.0) 10/18/16 06:10 RDW 15.0 % (11.6-15.6) 10/18/16 06:10 Plt Count 125 K/MM3 (134-434) L 10/18/16 06:10 MPV 9.4 fl (7.5-11.1) 10/18/16 06:10 Neutrophils % 75.9 % (42.8-82.8) 10/18/16 06:10 Lymphocytes % 15.5 % (8-40) 10/18/16 06:10 Monocytes % 6.5 % (3.8-10.2) 10/18/16 06:10 Eosinophils % 1.9 % (0-4.5) D 10/18/16 06:10 Basophils % 0.2 % (0-2.0) 10/18/16 06:10 Problem List - Problems (1) AMA (advanced maternal age) multigravida 35+ Code(s): O09.529 - SUPERVISION OF ELDERLY MULTIGRAVIDA, UNSPECIFIED TRIMESTER Qualifiers: Trimester: third trimester Qualified Code(s): O09.523 - Supervision of elderly multigravida, third trimester (2) Previous section Code(s): Z98.89 - OTHER SPECIFIED POSTPROCEDURAL STATES * DO NOT USE * (3) Post term over 40 weeks Code(s): O48.0 - POST-TERM (4) Desires (vaginal after ) trial Code(s): O34.21 - MATERNAL CARE FOR SCAR FROM PREVIOUS * DO NOT USE * Assessment/Plan anemia Plan : encourage ambulation fleets enema
[2016-10-18] MEDS: FERROUS SO4 325 MG TABLET (FP) PO SCH ×2 (12:00→21:56)
[2016-10-18] MEDS: SIMETHICONE 80 MG TAB.CHEW (FP) PO PRN ×2 (18:21→22:19)
[2016-10-18] MEDS: ACETAMINOPHEN 325 MG TABLET (FP) PO PRN ×2 (18:22→22:20)
[2016-10-18] MEDS: IBUPROFEN 600 MG TABLET (FP) PO PRN ×2 (18:24→22:19)
[2016-10-18] MEDS ORDERED: SODIUM PHOSPHATE/NA BIPHOS 133 ML ENEMA RC ONE (18:30)
--- NOTE | 2016-10-19 07:07 | PN ---
Post Progress Note - Subjective Subjective: had a small dc from incision, no erythema Post Day: 4 Type of Delivery: Repeat C/S Vital Signs: Vital Signs Temperature 98.0 F 10/18/16 22:00 Pulse Rate 94 H 10/18/16 22:00 Respiratory Rate 20 10/18/16 22:00 Blood Pressure 129/75 10/18/16 22:00 O2 Sat by Pulse Oximetry (%) 100 10/15/16 10:25 Breast Exam: Yes: Soft Incision: Yes: Nico intact Abdomen/GI: Yes: Abdomen soft Lochia: Yes: Rubra Lochia, amount: Small Extremities: Yes: Calves non-tender Perineum: Yes: Intact Activity: Ambulating - Labs Labs: CBC WBC 6.2 K/mm3 (4.0-10.0) 10/18/16 06:10 RBC 3.42 M/mm3 (3.60-5.2) L 10/18/16 06:10 Hgb 9.8 GM/dL (10.7-15.3) L 10/18/16 06:10 Hct 29.8 % (32.4-45.2) L 10/18/16 06:10 MCV 87.1 fl (80-96) 10/18/16 06:10 MCHC 32.9 g/dl (32.0-36.0) 10/18/16 06:10 RDW 15.0 % (11.6-15.6) 10/18/16 06:10 Plt Count 125 K/MM3 (134-434) L 10/18/16 06:10 MPV 9.4 fl (7.5-11.1) 10/18/16 06:10 Neutrophils % 75.9 % (42.8-82.8) 10/18/16 06:10 Lymphocytes % 15.5 % (8-40) 10/18/16 06:10 Monocytes % 6.5 % (3.8-10.2) 10/18/16 06:10 Eosinophils % 1.9 % (0-4.5) D 10/18/16 06:10 Basophils % 0.2 % (0-2.0) 10/18/16 06:10 Assessment/Plan as above oob reg diet feels better
[2016-10-19 09:50] VITALS: BP 127/74; PULSE 89; TEMP 98.4
[2016-10-19] MEDS: ENOXAPARIN NA (PORCINE) 40 MG/0.4 ML DISP.SYRIN SQ SCH (10:47)
[2016-10-19] MEDS: FLUTICASONE/SALMETEROL 100 MCG/50 MCG DISKUS IH SCH (10:48)
[2016-10-19] MEDS: PRENATAL VITAMINS W/ FOLIC ACID TABLET (FP) PO SCH (10:48)
[2016-10-19] MEDS: FERROUS SO4 325 MG TABLET (FP) PO SCH (10:48)
[2016-10-19] MEDS: IBUPROFEN 600 MG TABLET (FP) PO PRN (10:52)
[2016-10-19] MEDS: ACETAMINOPHEN 325 MG TABLET (FP) PO PRN (10:53)
[2016-10-19] MEDS: SIMETHICONE 80 MG TAB.CHEW (FP) PO PRN (10:53)
--- NOTE | 2016-10-19 12:32 | DS ---
Physical Exam-JACQUARD LOOM WEAVER Vital Signs: Vital Signs Temperature 98.4 F 10/19/16 09:43 Pulse Rate 89 10/19/16 09:43 Respiratory Rate 20 10/19/16 09:43 Blood Pressure 127/74 10/19/16 09:43 O2 Sat by Pulse Oximetry (%) 100 10/15/16 10:25 Constitutional: Yes: Well Nourished, Obese, Pallor Eyes: Yes: WNL HENT: Yes: WNL Neck: Yes: WNL Cardiovascular: Yes: WNL Respiratory: Yes: WNL Gastrointestinal: Yes: WNL, Normal Bowel Sounds, Soft, Abdomen, Obese, Distention (mild), Other (bm done) Renal/: Yes: Other (voiding without difficulty) ....Post : Yes: Uterus firm, Uterus non-tender (below umblicus), Moderate lochia rubra Breast(s): Yes: WNL (not engorged . BF) Musculoskeletal: Yes: WNL Extremities: Yes: WNL. No: Calf Tenderness Edema: Yes Edema: LLE: 1+, RLE: 1+ Integumentary: Yes: WNL, Tattoos Wound/Incision: Yes: Clean/Dry, Well Approximated, Steri Strips, Open to air, Nico Removed. No: Bleeding, Excoriated Neurological: Yes: WNL ...Motor Strength: WNL Psychiatric: Yes: WNL, Alert, Oriented Labs: CBC, BMP 10/18/16 06:10 10/15/16 08:30 Delivery - Delivery Section: Repeat, Low Flap Transverse (Indication : 40.2 weeks, Previous C/Section, failed , Non Reassuring FHR) Type of Anesthesia: Epidural Episiotomy/Laceration: None EBL (cc): 800 Delivery, Single - Stages of Labor Date 1st Stage Initiatied: 10/15/16 Time 1st Stage Initiated: 03:00 Date of Delivery: 10/15/16 Time of Delivery: 11:11 Time Placenta Delivered: 11:12 Placenta: Yes: Manual Removal, Uterine Exploration - Condition of Electric Motors Salesperson/Building Maintenance Technician Present: Yes Name: Groening,Kala Infant Gender: Male Weight: 8 lb 2 oz Position: Right, OT Total Hours ROM (Hrs/Mins): 2H 26MIN - 1 Minute Total Score: 9 5 Minutes Total Score: 9 - Feeding Plan Initial Plan: Exclusive throughout hospitalization Remarks - Remarks Remarks: 41 yrs , 40.2 weeks , previous c/section, admitted in labor PNC at [address] [place] [address] GBS neg epidural labor analgesia was given recurrent variable decels were noted , non reaasuring FHR diagnosed IV Clindamycin 900 mg prior to incision was given Intraop course uneventful . post op unevntful except gaseous discomfort Anemia counselled Discharge today 10/19/16 Discharge Summary Reason For Visit: LABOR Current Active Problems AMA (advanced maternal age) multigravida 35+ (Acute) Delivery by (planned) section occurring after 37 completed weeks of gestation but before 39 completed weeks gestation due to (spontaneous) onset of labor, with mention of complication (Acute) Desires (vaginal after ) trial (Acute) Post term over 40 weeks (Acute) Previous section (Acute) Condition: Stable - Instructions Diet, Activity, Other Instructions: Post Instructions DIET: Continue good diet high in protein, calcium, and iron rich foods. Drink at least eight (8) glasses of water daily in addition to other fluids. ct Regular diet MEDICATIONS: Continue vitamins and iron as previously directed. Motrin and Tylenol may be taken for minor discomfort. ACTIVITY: Mild to moderate exercise may be started in two (2) weeks. Take frequent rest periods. Resume normal activity after six (6) week check up. WOUND CARE OF OPERATIVE SITE: Continue use of perineal bottle until vaginal discharge stops. Keep area clean. Shower daily. Keep abdominal wound dry. Report any drainage or redness to physician. Tub baths, tampons and douches are not permitted for [address] Breast feeding & or Bottle feeding BREAST CARE: (For those that are not breast feeding): If engorgement occurs: Wear tight fitting bra. Take Tylenol or Motrin for pain. Apply cold packs (ice in bags to each breast ) FAMILY PLANNING: There are many control alternatives to pursue and they should be discussed at your first office visit. You may resume sexual activity after your six (6) week check up. (Remember, breast feeding is not a contraceptive) NEXT PHYSICIAN APPOINTMENT: Be certain to call for a one (1) week appointment, unless otherwise directed. Call Clinic or got to Emergency Dept if you have any of the following: Heavy vaginal bleeding Painful urination Leg pain Unusual odor noted to vaginal bleeding High fever Red streaking noted on breast Referrals: Mary Lockhart MD [Staff Physician] - Disposition: HOME - Home Medications Comprehensive Discharge Medication List: Ambulatory Orders Folic Acid 0.8 mg PO DAILY 04/18/16 Vitamins (Sjr) - 1 tab PO DAILY 09/15/16 Ferrous Sulfate [Feosol] 325 mg PO DAILY 10/07/16 Acetaminophen [Tylenol .Regular Strength -] 650 mg PO Q4H PRN #0 tablet Ferrous Sulfate [Feosol] 325 mg PO BID #60 ud 10/18/16 Ibuprofen [Motrin -] 600 mg PO Q4H PRN #30 tablet 10/18/16 Vitamins (Sjr) - 1 tab PO DAILY #30 tablet 10/18/16 Salmeterol/Fluticasone [Advair 100Mcg/50Mcg -] 1 puff IH BID inhaler 10/18/16
--- NOTE | 2016-10-20 09:48 | PATH ---
Surgical Pathology Report Patient Name: EASTON MENDEZ [facility]. Rec. #: [id number] /Age/Gender: 1975 (Age: 41) / F Account: [id number] Location: [facility] OBS/THERMOSPRAY OPERATOR Taken: 10/15/2016 Received: 10/16/2016 Reported: 10/20/2016 Physicians: Mary Lockhart M.D. Specimen(s) Received PLACENTA Clinical History , 40.2 gestational weeks Repeat c/section in labor Final Diagnosis PLACENTA, DELIVERY: FOCALLY DISRUPTED THIRD TRIMESTER PLACENTA WITH MILD PREVILLOUS, PERIVILLOUS, AND PRECHORIONIC FIBRIN DEPOSITION, THREE VESSEL UMBILICAL CORD, AND PLACENTAL MEMBRANES WITH ACUTE CHORIOAMNIONITIS. Electronically Signed Ge Olson M.D. Gross Description The specimen is received fresh, labeled "placenta" and is a 454 gram, 19.0 x 13.5 x 2.5 cm. placenta with attached membranes and umbilical cord. The attached membranes are poole with focal opacities and insert marginally. The umbilical cord measures 16 cm in length and averages 1.2 cm in diameter. The cord inserts eccentrically, 4 cm to the nearest margin. No true knots or strictures are identified. Cut surface of the umbilical cord reveals 3 vessels. The surface is cavanaugh-blue with fibrin deposition and appropriate caliber vessels. The maternal surface is red-brown with focal defects. Sectioning reveals red-brown, spongy parenchyma. No focal lesions are identified. Appliance Counselor sections are submitted in three cassettes as follows: 1- membrane rolls and umbilical cord; 2-3- full thickness sections of placenta. 10/18/2016 [facility]10/18/2016
== END 2016-10-19 14:15 | disposition home or self-care (01) | DRG 766 ==
LOC: JLDR 08:10 → J3W 13:40
PROVIDERS: ADMIT Obstetrics & Gynecology; ATTEND Obstetrics & Gynecology
PROC: 10D00Z1 Extraction of Products of Conception, Low, Open Approach (ICD-10-PCS; principal; 2016-10-15)
PROC: 10907ZC Drainage of Amniotic Fluid, Therapeutic from Products of Conception, Via Natural or Artificial Opening (ICD-10-PCS; 2016-10-15)
DX: O76 Abnormality in fetal heart rate and rhythm complicating labor and delivery (principal); O48.0 Post-term pregnancy; O34.211 Maternal care for low transverse scar from previous cesarean delivery; O09.529 Supervision of elderly multigravida, unspecified trimester; O69.81X0 Labor and delivery complicated by cord around neck, without compression, not applicable or unspecified; Z3A.40 40 weeks gestation of pregnancy; Z37.0 Single live birth
CPT/HCPCS: 36415; 36600; 80048; 82803; 85025; 85610; 85730; 86593; 86850; 86900; 86901; 88307-TC; 90686; 90715; 90732; 94010; G0009

== ENCOUNTER 2016-10-27 12:49 | Observation (INO) | payer OTHER ==
[2016-10-27 12:59] VITALS: BMI 30.5
--- NOTE | 2016-10-27 13:45 | PDOC ---
History of Present Illness - General History Source: Patient Exam Limitations: No Limitations <Rachelle Carranza - Last Filed: 10/27/16 16:43> <Manish Huff - Last Filed: 10/31/16 12:04> - General Chief Complaint: Chest Pain Stated Complaint: HIGH BP, CHEST PAIN, (REFERRED) Time Seen by Provider: 10/27/16 13:23 - History of Present Illness Initial Comments: CHIEF COMPLAINT: 41 y/o afebrile female with no significant PMH c/o chest pain , dizziness and high blood pressure for the past 3 days. HISTORY OF PRESENT ILLNESS: The patient gave via 12 days ago in this hospital. She states there were no complications from the . For the past 3 days the patient has had chest pain and dizziness. She describes the chest pain as tightness and states it's better when she sits up and worse when she lies flat. She went to urgent care today where her BP was 166 /98 and she had an abnormal EKG so they sent her here. She denies f/c, NELSON, neck pain, n/v/d, SOB, cough, abd pain, back pain, hematuria, dysuria. CRAWLER CRANE OPERATOR is Dr. Salinas. Vital signs on arrival are within normal limits. REVIEW OF SYSTEMS: GENERAL/CONSTITUTIONAL: No fever/chills. No weakness. No weight change. HEAD, EYES, EARS, NOSE AND THROAT: No change in vision. No ear pain or discharge. No sore throat. CARDIOVASCULAR: +chest pain. No shortness of breath. RESPIRATORY: No cough, wheezing, or hemoptysis. GASTROINTESTINAL: No abd pain, nausea, vomiting, diarrhea. GENITOURINARY: No dysuria, frequency, or change in urination. MUSCULOSKELETAL: No joint or muscle swelling or pain. No neck or back pain. SKIN: No rash or easy bruising. NEUROLOGIC: +dizziness. No headache, loss of consciousness, or loss of sensation. PHYSICAL EXAM: GENERAL: The patient is awake, alert, and fully oriented, in no acute distress. She is ambulatory but concerned. HEAD: Normal with no signs of trauma. ENT: Pupils equal, round and reactive to light, extraocular movements intact, sclera anicteric, conjunctiva clear. Neck supple. LUNGS: Clear to auscultation bilaterally. Normal excursion. No respiratory distress or use of accessory muscles. CV: RRR, S1/S2, no MRG. Cap refill < 2 sec. ABDOMEN: Soft, non-distended, non-tender even to deep palpation, no hepatomegaly or splenomegaly, no masses. EXTREMITIES: Normal range of motion, no edema. Pt is wearing compression stockings. NEUROLOGICAL: Normal speech, normal gait. CN II-XII grossly intact. No facial drooping. Equal straight leg raise. Motor and sensory intact in b/l UEs and LEs. PSYCH: Normal mood, normal affect. SKIN: Warm, dry, normal turgor, no rashes or lesions noted. (Rachelle Carranza) Past History - Past Medical History Asthma: Yes Cancer: No Cardiac Disorders: No Diabetes: No HTN: No Suicide Attempt (Hx): No Seizures: No Thyroid Disease: No - Surgical History Abdominal Surgery: Yes (hernia repair as an ) - Reproductive History Expected Date of Delivery: 10/05/16 (#): 3 Para: 1 Cervical CA: No Dysfunctional Uterine Bleeding: No Ectopic : No Endometrial CA: No Endometriosis: No Ovarian CA: No PID: No Polycystic Ovaries: No Therapeutic (s) & number: Yes (X1) Tubal Ligation: No Uterine Fibroids: No - Immunization History Immunization Up to Date: Yes - Psycho/Social/Smoking Cessation Hx Anxiety: Yes Suicidal Ideation: No Smoking Status: No Smoking History: Never smoked Have you smoked in the past 12 months: No Number of Cigarettes Smoked Daily: 0 Hx Alcohol Use: No Drug/Substance Use Hx: No Substance Use Type: Alcohol Hx Substance Use Treatment: No <Rachelle Carranza - Last Filed: 10/27/16 16:43> <Manish Huff - Last Filed: 10/31/16 12:04> - Past Medical History Allergies/Adverse Reactions: Allergies Allergy/AdvReac Type Severity Reaction Status Date / Time oxycodone Allergy Severe Itching Verified 10/27/16 12:53 Penicillins Allergy Severe Itching Verified 10/27/16 12:53 shellfish derived Allergy Severe Swelling Verified 10/27/16 12:53 cefalexin Allergy Severe Itching Uncoded 10/27/16 12:53 Cardiac Specific PMH - Complaint Specific PMHX Angina: No Pulmonary Embolus: No <Rachelle Carranza - Last Filed: 10/27/16 16:43> - Vital Signs Last Vital Signs Temp Pulse Resp BP Pulse Ox 98.2 F 77 18 133/68 96 10/28/16 09:00 10/28/16 09:00 10/28/16 09:00 10/28/16 09:00 10/28/16 09:00 Heart Score/ECG Review <Rachelle Carranza - Last Filed: 10/27/16 16:43> <Manish Huff - Last Filed: 10/31/16 12:04> - ECG Intrepretation Comment:: Twelve-lead EKG was performed and reviewed by Dr. Huston. There is normal sinus rhythm with a normal rate. The axis is normal. The intervals are normal. There are no ST or T wave abnormalities. Impression: Normal twelve-lead EKG Very slight changes from prior of 09/18/16 (Rachelle Carranza) ED Treatment Course - LABORATORY CBC & Chemistry Diagram: 10/27/16 13:30 10/27/16 13:30 <Rachelle Carranza - Last Filed: 10/27/16 16:43> - LABORATORY CBC & Chemistry Diagram: 10/28/16 06:00 10/28/16 06:00 <Manish Huff - Last Filed: 10/31/16 12:04> - ADDITIONAL ORDERS Additional order review: 10/27/16 13:30 RBC 3.99 MCV 86.4 MCHC 32.5 RDW 14.9 MPV 8.3 D Neutrophils % 67.3 Lymphocytes % 26.1 D Monocytes % 5.1 Eosinophils % 1.1 Basophils % 0.4 - RADIOLOGY Radiology Studies Ordered: Category Date Time Status CHEST X-RAY PORTABLE* [RAD] Stat Radiology 10/27/16 13:39 Completed - Medications Given in the ED: ED Medications Discontinued Medications Generic Name Dose Route Start Last Admin Trade Name Freq PRN Reason Stop Dose Admin Acetaminophen 650 mg 10/27/16 15:16 10/27/16 16:15 Tylenol - PO 10/27/16 15:17 650 mg ONCE ONE Administration Acetaminophen 650 mg 10/27/16 17:50 10/28/16 09:02 Tylenol - PO 650 mg Q6H PRN Administration FEVER OR PAIN Diphenhydramine HCl 25 mg 10/27/16 18:09 10/27/16 18:17 Benadryl Injection - IVPUSH 10/27/16 18:10 25 mg ONCE ONE Administration Docusate Sodium 100 mg 10/27/16 22:00 10/28/16 06:26 Colace - PO 100 mg TID KAMERON Administration Enoxaparin Sodium 40 mg 10/28/16 10:00 10/28/16 09:03 Lovenox - SQ 40 mg DAILY KAMERON Administration Labetalol HCl 100 mg 10/27/16 17:45 10/28/16 09:02 Normodyne - PO 100 mg BID KAMERON Administration Magnesium Oxide 400 mg 10/28/16 12:00 10/28/16 11:59 Mag-Ox - PO 10/28/16 12:01 400 mg ONCE ONE Administration Methylprednisolone Sodium Succinate 125 mg 10/27/16 18:09 10/27/16 18:17 Solu-Medrol - IVPB 10/27/16 18:10 125 mg ONCE ONE Administration Methylprednisolone Sodium Succinate 80 mg 10/28/16 10:00 10/28/16 10:10 Solu-Medrol - IVPB 10/28/16 10:01 80 mg ONCE ONE Administration Potassium Chloride 40 meq 10/27/16 20:26 10/27/16 21:53 K-Dur - PO 10/27/16 20:27 40 meq ONCE ONE Administration Multivit/Folic Acid/Iron 1 tab 10/28/16 10:00 10/28/16 10:12 Vitamins (Sjr) - PO 1 tab DAILY KAMERON Administration Medical Decision Making <Rachelle Carranza - Last Filed: 10/27/16 16:43> <Manish Huff - Last Filed: 10/31/16 12:04> - Medical Decision Making A/P: 41 y/o afebrile female, 12 days s/p c/o chest pain and dizziness for the past 3 days. Pt was found to have high BP of 166/98 at Urgent care and was sent here. Plan is as follows: 1. EKG 2. CXR 3. Labs 4. ECHO CXR IMPRESSION: No evidence of active pulmonary disease Elevated BNP and total CK. Will call Dr. Olsen, all terrain vehicle racer personal support worker, for admission to obs. Ordered the patient PO tylenol for pain as she is breast feeding. SPoke with NATUROPATHIC ONCOLOGY PROVIDER Norma and she accepts admission on behalf of Dr. Ball to Tele Obs. Pt states she now feels SOB - will give oxygen via NC. Will order at [facility] to r/o PE. (Rachelle Carranza) 10/31/16 12:02 The patient was seen and evaluated in conjunction with ERWIN Carranza under my direct supervision, ancillary studies were reviewed. I agree with the plan as outlined by ERWIN Carranza . (Manish Huff) *DC/Admit/Observation/Transfer - Discharge Dispostion Admit: Yes <Rachelle Carranza - Last Filed: 10/27/16 16:43> <Manish Huff - Last Filed: 10/31/16 12:04> Diagnosis at time of Disposition: Chest pain Qualifiers: Chest pain type: unspecified Qualified Code(s): R07.9 - Chest pain, unspecified - Discharge Dispostion Disposition: HOME Condition at time of disposition: Stable - Prescriptions
[2016-10-27 13:46] LABS: BASOPHIL 0.4 % (0-2.0); EOSINOPHIL 1.1 % (0-4.5); MCH 28.1 pg (25.7-33.7); MCHC 32.5 g/dl (32.0-36.0); MEAN CELL VOLUME 86.4 fl (80-96); MEAN PLT VOLUME 8.3 fl (7.5-11.1); NEUTROPHILS 67.3 % (42.8-82.8); PLATELET COUNT 219 K/MM3 (134-434); RDW 14.9 % (11.6-15.6); WHITE BLOOD COUNT 4.7 K/mm3 (4.0-10.0)
[2016-10-27 14:14] LABS: ANION GAP 9 (8-16); BILIRUBIN,TOTAL 0.5 mg/dL (0.2-1.0); CALCIUM 8.8 mg/dL (8.5-10.1); CO2 27 mmol/L (21-32); CREATININE 0.9 mg/dL (0.55-1.02); GLUCOSE,RANDOM 96 mg/dL (74-106); SGOT/AST 23 U/L (15-37); SGPT/ALT 31 U/L (12-78); TOT PROT 6.8 g/dl (6.4-8.2)
[2016-10-27 14:17] LABS: ALK PHOS 106 U/L (45-117); TROPONIN I 0.04 ng/ml (0.00-0.05)
[2016-10-27] MEDS ORDERED: ACETAMINOPHEN 325 MG TABLET (FP) PO ONE (15:16)
[2016-10-27] MEDS ORDERED: ACETAMINOPHEN 325 MG TABLET (FP) ONE (16:11)
--- NOTE | 2016-10-27 16:31 | EKG ---
Test Reason : Blood Pressure : / mmHG Vent. Rate : 065 BPM Atrial Rate : 065 BPM P-R Int : 176 ms QRS Dur : 090 ms QT Int : 398 ms P-R-T Axes : 026 -14 009 degrees QTc Int : 413 ms NORMAL SINUS RHYTHM CANNOT RULE OUT ANTERIOR INFARCT , AGE UNDETERMINED NONSPECIFIC T WAVE ABNORMALITY ABNORMAL ECG WHEN COMPARED WITH ECG OF 18-SEP-2016 20:08, Confirmed by MD RANI, LILLIAN ([id number]) on 10/27/2016 4:31:29 PM Referred By: Confirmed By:LILLIAN SARAVIA MD
--- NOTE | 2016-10-27 17:43 | HP ---
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 Salinas HISTORY OF PRESENT ILLNESS: This is a 41 year old female, 12 days post- via c/s, with a history of asthma (intubation x 1 approx 12 yrs ago, on daily Advair) who presented to the ED complaining of elevated BP. She reports that on Sunday at her post-op visit on Sunday, she was noted to be hypertensive to 140/90. She has had bilateral lower extremity edema, which she notes developed only after delivery. She measured her blood pressure at home yesterday and found it to be 170 systolic. She also developed frontal headaches which she describes as severe and associated with transient blurred vision. Last night, she developed chest "tightness" which woke her from sleep several times. She describes this tightness as somehow different form that of an asthma exacerbation. The tightness seems to be worse with laying flat and better with sitting upright. While in the ED, she also developed shortness of breath. ER course was notable for: (1) EKG: NSR with a normal rate. The axis is normal. The intervals are normal. There are no ST or T wave abnormalities. (2) Mild HTN: BPs 140s systolic on repeat measurements (3) Echocardiogram: normal LV function, grossly normal RV function (not well visualized), elevated RVSP at 44 mmHg Recent Travel: None Social History: Lives with and 6 year old child. 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 Smoking: Never smoker Alcohol: None Drugs: None Family History: Mother with HTN, father with DM. Allergies oxycodone Allergy (Severe, Verified 10/27/16 12:53) Itching Penicillins Allergy (Severe, Verified 10/27/16 12:53) Itching shellfish derived Allergy (Severe, Verified 10/27/16 12:53) Swelling cefalexin Allergy (Severe, Uncoded 10/27/16 12:53) Itching HOME MEDICATIONS: Home Medications Medication Instructions Recorded NK [No Known Home Medication] 10/27/16 REVIEW OF SYSTEMS CONSTITUTIONAL: Absent: fever, chills, diaphoresis, generalized weakness, malaise, loss of appetite, weight change HEENT: Absent: rhinorrhea, nasal congestion, throat pain, throat swelling, difficulty swallowing, mouth swelling, ear pain, eye pain, visual changes CARDIOVASCULAR: See HPI RESPIRATORY: Absent: cough, shortness of breath, dyspnea with exertion, orthopnea, wheezing, stridor, hemoptysis GASTROINTESTINAL: Absent: abdominal pain, abdominal distension, nausea, vomiting, diarrhea, constipation, melena, hematochezia GENITOURINARY: Absent: dysuria, frequency, urgency, hesitancy, hematuria, flank pain, genital pain MUSCULOSKELETAL: Absent: myalgia, arthralgia, joint swelling, back pain, neck pain SKIN: Absent: rash, itching, pallor HEMATOLOGIC/IMMUNOLOGIC: Absent: easy bleeding, easy bruising, lymphadenopathy, frequent infections ENDOCRINE: Absent: unexplained weight gain, unexplained weight loss, heat intolerance, cold intolerance NEUROLOGIC: Frontal headache and blurred vision, resolved prior to arrival. Absent: focal weakness or paresthesias, dizziness, unsteady gait, seizure, mental status changes, bladder or bowel incontinence PSYCHIATRIC: Absent: anxiety, depression, suicidal or homicidal ideation, hallucinations. PHYSICAL EXAMINATION GENERAL: Awake, alert, and fully oriented, in no acute distress. EYES: Pupils equal, round and reactive to light, extraocular movements intact, sclera anicteric, conjunctiva clear. No lid lag. EARS, NOSE, THROAT: Ears normal, nares patent, oropharynx clear without exudates. Moist mucous membranes. NECK: Normal range of motion, supple without lymphadenopathy, JVD, or masses. LUNGS: Breath sounds equal, clear to auscultation bilaterally. No wheezes, and no crackles. No accessory muscle use. HEART: Regular rate and rhythm, normal S1 and S2 without murmur, rub or gallop. ABDOMEN: Soft, nontender, not distended, normoactive bowel sounds, no guarding, no rebound, no masses. No hepatomegaly or splenomegaly. C/s incision clean, dry. MUSCULOSKELETAL: Normal range of motion at all joints. No bony deformities or tenderness. No CVA tenderness. UPPER EXTREMITIES: 2+ pulses, warm, well-perfused. No cyanosis. No clubbing. Cap refill <2 seconds. No peripheral edema. LOWER EXTREMITIES: 2+ pulses, warm, well-perfused. No calf tenderness. 1+ pitting LE edema bilaterally. NEUROLOGICAL: Cranial nerves II-XII intact. Normal speech. PSYCHIATRIC: Cooperative. Good eye contact. Appropriate mood and affect. SKIN: Warm, dry, normal turgor, no rashes or lesions noted. ASSESSMENT/PLAN: 41 year old female with elevated BP, headaches, and lower extremity edema consistent with post- pre-eclampsia. Also with chest pain and shortness of breath with elevated RVSP on echocardiogram, concerning for PE. Problem List - Problem (1) Chest pain Assessment/Plan: -Monitor on telemetry -Repeat cardiac enzymes -CTA to r/o PE (patient has received contrast in past without complication, but will pre-medicate with Benadryl/Solu-Medrol given asthma and shellfish allergy) Code(s): R07.9 - CHEST PAIN, UNSPECIFIED Qualifiers: Chest pain type: unspecified Qualified Code(s): R07.9 - Chest pain, unspecified (2) Pre-eclampsia Assessment/Plan: -Start Labetolol 100mg bid -Ob evaluation Code(s): O14.90 - UNSPECIFIED PRE-ECLAMPSIA, UNSPECIFIED TRIMESTER (3) Asthma Assessment/Plan: -Not in exacerbation -Albuterol nebs prn Code(s): J45.909 - UNSPECIFIED ASTHMA, UNCOMPLICATED Qualifiers: Asthma severity: mild persistent Asthma complication type: with acute exacerbation Qualified Code(s): J45.31 - Mild persistent asthma with (acute ) exacerbation (4) DVT prophylaxis Assessment/Plan: -Lovenox 40mg sq daily -Ambulation Code(s): [id number] - Visit type - Emergency Visit Emergency Visit: Yes ED Registration Date: 10/27/16 Care time: The patient presented to the Emergency Department on the above date and was hospitalized for further evaluation of their emergent condition. - New Patient This patient is new to me today: Yes Date on this admission: 10/27/16 - Critical Care Critical Care patient: Yes Total Critical Care Time (in minutes): 35 Critical Care Statement: The care of this patient involved high complexity decision making to prevent further life threatening deterioration of the patient 's condition and/or to evalute & treat vital organ system(s) failure or risk of failure.
[2016-10-27] MEDS ORDERED: ONDANSETRON 4 MG/2 ML VIAL IVPB PRN (17:50)
[2016-10-27] MEDS ORDERED: LABETALOL HCL 100 MG TABLET (FP) ONE (18:01)
[2016-10-27] MEDS ORDERED: methylPREDNISolone NA SUCC 125 MG/2 ML VIAL IVPB ONE (18:09)
[2016-10-27] MEDS: LABETALOL HCL 100 MG TABLET (FP) PO SCH ×2 (18:17→21:00)
--- NOTE | 2016-10-27 18:30 | CON.CARD ---
Cardiology Consult (text) - Consultation Consultation Note: CC: CP/sob 41 yo with history of asthma, lbp, recent last week who presents with cp/sob. no h/o CV complications of Since delivery, she states she has had mild progressive le edema, and mild non- limiting sob with minimal exertion. Yesterday she developed sudden onset of chest tightness and subsequent associated sob. The symptoms have continued intermittently since yesterday lasting for about 5 minutes at a time. Possible trigger with exertion as well as when lying in bed at night. Symptoms associated with sensation of dizziness/altered perception and tingling in her hands. + recent anxiety since delivery. Tearful during assessment. no orthopnea, pnd, palps, transient neurologic symptoms. no f/c/s, n/v/d, h/a, rashes, visual disturbances, cough, congestion Ambulatory Orders NK [No Known Home Medication] 10/27/16 Current Medications Acetaminophen (Tylenol -) 650 mg PO Q6H PRN PRN Reason: FEVER OR PAIN Diphenhydramine HCl (Benadryl Injection -) 25 mg IVPUSH ONCE ONE Stop: 10/27/16 18:10 Last Admin: 10/27/16 18:17 Dose: 25 mg Docusate Sodium (Colace -) 100 mg PO TID [facility] Enoxaparin Sodium (Lovenox -) 40 mg SQ DAILY [facility] Labetalol HCl (Normodyne -) 100 mg PO BID [facility] Last Admin: 10/27/16 18:17 Dose: 100 mg Methylprednisolone Sodium Succinate (Solu-Medrol -) 125 mg IVPB ONCE ONE Stop: 10/27/16 18:10 Last Admin: 10/27/16 18:17 Dose: 125 mg Ondansetron HCl (Zofran Injection) 4 mg IVPB Q6H PRN PRN Reason: NAUSEA Multivit/Folic Acid/Iron ( Vitamins (Sjr) -) 1 tab PO DAILY [facility] Vital Signs - 24 hr 10/27/16 12:53 Temperature 98 F Pulse Rate 89 Respiratory 17 Rate Blood Pressure 139/89 O2 Sat by Pulse 99 Oximetry (%) Intake & Output 10/25/16 10/26/16 10/27/16 10/28/16 07:59 07:59 07:59 07:59 Weight 207 lb Nad, calm jvd flat, neck supple CTAB, nl effort rrr nl s1, s2 no mrg CP reproducible to palpation of sternum --> triggers sob, dizzy sx's and crying + bs soft nt nd ext with trace edema, no cyanosis, clubbing no jaundice, diaphoresis aaox3 CBC, BMP 10/27/16 13:30 10/27/16 13:30 Laboratory Tests 10/27/16 10/27/16 13:30 13:30 Total Bilirubin 0.5 D AST 23 D ALT 31 D Alkaline Phosphatase 106 D Creatine Kinase 464 H D CK-MB (CK-2) 2.739 Troponin I 0.04 B-Natriuretic Peptide 548.00 H Albumin 3.0 L EKG: poor r wave progression, non-specific t waves tele: SR echo: nl lv size/fn. RV not well seen. mild mr/tr. rvsp 44 CTA: no pe. overall unremarkable 41 yo with history of asthma, lbp, recent last week who presents with cp/sob. Post- CP/sob - first set of troponins neg, EKG without acute ischemic changes. con't r/o CT. CTA neg for PE. - telemetry monitoring - electrolyte repletion. - Sx's atypical for cardiac. Reproducible to palpation, consider musculoskeletal etiology if work up negative. - patient with anxiety and emotionally labile. Would screen for post- depression at discretion of pmd.
[2016-10-27] MEDS: ACETAMINOPHEN 325 MG TABLET (FP) PO PRN (19:57)
[2016-10-27] MEDS ORDERED: POTASSIUM CHLORIDE TABS 20 MEQ TABLET.ER (FP) PO ONE (20:26)
[2016-10-27] MEDS: DOCUSATE SODIUM 100 MG CAPSULE (FP) PO SCH (21:53)
[2016-10-28] MEDS: DOCUSATE SODIUM 100 MG CAPSULE (FP) PO SCH (06:26)
[2016-10-28 08:43] LABS: BASOPHIL 0.1 % (0-2.0); MCH 28.2 pg (25.7-33.7); MCHC 32.6 g/dl (32.0-36.0); MEAN CELL VOLUME 86.5 fl (80-96); MEAN PLT VOLUME 8.8 fl (7.5-11.1); NEUTROPHILS 72.6 % (42.8-82.8); PLATELET COUNT 241 K/MM3 (134-434); RDW 14.5 % (11.6-15.6)
[2016-10-28] MEDS: LABETALOL HCL 100 MG TABLET (FP) PO SCH (09:02)
[2016-10-28] MEDS: ACETAMINOPHEN 325 MG TABLET (FP) PO PRN (09:02)
[2016-10-28 09:11] LABS: ALBUMIN 2.9 g/dl (3.4-5.0); ALK PHOS 105 U/L (45-117); ANION GAP 10 (8-16); BILIRUBIN,TOTAL 0.6 mg/dL (0.2-1.0); CALCIUM 9.1 mg/dL (8.5-10.1); CO2 27 mmol/L (21-32); CREATININE 0.8 mg/dL (0.55-1.02); GLUCOSE,RANDOM 81 mg/dL (74-106); SGOT/AST 16 U/L (15-37); SGPT/ALT 28 U/L (12-78); TOT PROT 6.9 g/dl (6.4-8.2); TROPONIN I 0.05 ng/ml (0.00-0.05)
[2016-10-28] MEDS ORDERED: methylPREDNISolone NA SUCC 125 MG/2 ML VIAL IVPB ONE (10:00)
[2016-10-28] MEDS ORDERED: PRENATAL VITAMINS W/ FOLIC ACID TABLET (FP) PO SCH (10:00)
[2016-10-28] MEDS ORDERED: ENOXAPARIN NA (PORCINE) 40 MG/0.4 ML DISP.SYRIN SQ SCH (10:00)
--- NOTE | 2016-10-28 10:06 | DS ---
Physical Exam: SUBJECTIVE: Patient seen and examined on tele. She says she feels a chest tightness like phlem needs to come up. The oxygen helps. The tenderness is reproducible. She has a bilateral temporal NELSON with some dizziness. States she is happy to go home and see baby. OBJECTIVE: Vital Signs Period Temp Pulse Resp BP Sys/Wagner Pulse Ox Last 24 Hr 97.2 F-98.1 F 57-97 20-20 141-165/70-98 96-100 PHYSICAL EXAM Neuro: alert, awake, cn 2-12intact, + bilateral temporal tenderness Pulm: CTAB + NC CV: + reproducible sternal tenderness, s1 s2 rrr no mrg Breast: + , Breast tenderness to palpation, full breasts Abd: s nt nd + bs, incision CDI Ext: no lower ext edema, warm Laboratory Results - last 24 hr 10/28/16 10/28/16 06:00 06:00 WBC 5.0 RBC 4.00 Hgb 11.3 Hct 34.6 MCV 86.5 MCHC 32.6 RDW 14.5 Plt Count 241 MPV 8.8 Neutrophils % 72.6 Lymphocytes % 22.2 Monocytes % 5.1 Eosinophils % 0.0 D Basophils % 0.1 Sodium 143 Potassium 4.2 D Chloride 106 Carbon Dioxide 27 Anion Gap 10 BUN 7 Creatinine 0.8 Creat Clearance w eGFR > 60 Random Glucose 81 Calcium 9.1 Magnesium 2.0 Total Bilirubin 0.6 AST 16 D ALT 28 Alkaline Phosphatase 105 Creatine Kinase 339 H D Troponin I 0.05 Total Protein 6.9 Albumin 2.9 L HOSPITAL COURSE: Date of Admission:10/27/16 Date of Discharge: 10/28/16 Minutes to complete discharge: 35 Discharge Summary Reason For Visit: CHEST PAIN Current Active Problems Chest pain (Acute) DVT prophylaxis (Acute) Pre-eclampsia (Acute) Hospital Course: Initial Hospital Course: 41 year old female, 12 days post- via c/s, with a history of asthma ( intubation x 1 approx 12 yrs ago, on daily Advair) presented to the ED complaining of elevated BP. At her post-op visit on Sunday, she was hypertensive to 140/90. She has had bilateral lower extremity edema, which she noted developed only after delivery. She measured her blood pressure at home yesterday and found it to be 170 systolic. She also developed frontal headaches which she described as severe and associated with transient blurred vision. Last night, she developed chest "tightness" which woke her from sleep several times. She described this tightness as somehow different form that of an asthma exacerbation. The tightness seems to be worse with laying flat and better with sitting upright. While in the ED, she also developed shortness of breath. ER course: (1) EKG: NSR with a normal rate. The axis is normal. The intervals are normal. There are no ST or T wave abnormalities. (2) Mild HTN: BPs 140s systolic on repeat measurements (3) Echocardiogram: normal LV function, grossly normal RV function (not well visualized), elevated RVSP at 44 mmHg Subsequent Hospital Course/Progress Note/Discharge Summary: 1 Chest pain - Chest pain most likely musculoskeletal - Tele: SR - CTA negative for PE - r/o IA Trops x2 negative - Will give x1 dose solumedrol 80mg - Home with prednisone 60mg daily x4 days - Ibuprofen PRN, pt has asthma, do not want to exacerbate - Cardiology follow up in 2 weeks 2. Pre-eclampsia - Appropriate response to BP meds - Continue Labetolol 100mg bid - Urine protein ordered/UA - OB follow up in 2 weeks for assessment 3. Asthma -Not in exacerbation -Albuterol nebs prn - Short course steroids as above 4. Headache - Possible from elevated BP From pre eclampsia - Tylenol PRN - x1 dose mag ox 400mg Dispo: - Home with above follow up and meds - Pt aware and agrees to above plan Condition: Stable - Instructions Diet, Activity, Other Instructions: Please return to the ED for any new, persistent, or worsening symptoms. Follow up with your PCP in 1 week and cardiology (referral enclosed) Take BP meds as directed and regularly Take prednisone 60mg daily for 4 days. Take Ibuprofen as needed for chest tenderness Follow up with C[facility]ER, tell her to follow up on your urine protein analysis to eval for pre eclampsia Referrals: Emily García MD [Staff Physician] - Emily Salinas MD [Staff Physician] - Disposition: HOME - Home Medications Comprehensive Discharge Medication List: Ambulatory Orders Labetalol HCl [Normodyne -] 100 mg PO BID #60 tablet 10/28/16 Prednisone [Deltasone -] 60 mg PO DAILY #4 tablet 10/28/16 Problem List - Problems (1) Chest pain Code(s): R07.9 - CHEST PAIN, UNSPECIFIED Qualifiers: Chest pain type: unspecified Qualified Code(s): R07.9 - Chest pain, unspecified (2) DVT prophylaxis Code(s): CKD3303 - (3) Pre-eclampsia Code(s): O14.90 - UNSPECIFIED PRE-ECLAMPSIA, UNSPECIFIED TRIMESTER (4) AMA (advanced maternal age) multigravida 35+ Code(s): O09.529 - SUPERVISION OF ELDERLY MULTIGRAVIDA, UNSPECIFIED TRIMESTER Qualifiers: Trimester: third trimester Qualified Code(s): O09.523 - Supervision of elderly multigravida, third trimester (5) Asthma Code(s): J45.909 - UNSPECIFIED ASTHMA, UNCOMPLICATED Qualifiers: Asthma severity: mild persistent Asthma complication type: with acute exacerbation Qualified Code(s): J45.31 - Mild persistent asthma with (acute ) exacerbation (6) Dizziness Code(s): R42 - DIZZINESS AND GIDDINESS This patient is new to me today: Yes Date on this admission: 10/28/16 Emergency Visit: Yes ED Registration Date: 10/27/16 Care time: The patient presented to the Emergency Department on the above date and was hospitalized for further evaluation of their emergent condition. Critical Care patient: No - Discharge Referral Referred to [facility] No
[2016-10-28] MEDS ORDERED: PT OWN MED DRAWER 7, Y5N ONE (10:11)
[2016-10-28 10:20] VITALS: BP 133/68; PULSE 77; TEMP 98.2
[2016-10-28 11:09] LABS: URINE APPEARANCE CLEAR; URINE BILIRUBIN NEGATIVE (NEGATIVE); URINE COLOR LTYELLOW; URINE GLUCOSE (UA) NEGATIVE (NEGATIVE); URINE KETONE NEGATIVE (NEGATIVE); URINE NITRITE NEGATIVE (NEGATIVE); URINE PROTEIN NEGATIVE (NEGATIVE); URINE UROBILINOGEN NEGATIVE E.U./dl (0.2-1.0)
[2016-10-28 11:15] LABS: URINE BLOOD 2+ (NEGATIVE); URINE LEUK ESTERASE 1+ (NEGATIVE)
[2016-10-28 11:18] LABS: URINE MUCUS RARE; URINE RBC 8 /hpf (0-3); URINE WBC 27 /hpf (3-5)
--- NOTE | 2016-10-28 11:48 | PN ---
Progress Note, Physician History of Present Illness: No events overnight Feels improved after steroids - Current Medication List Current Medications: Active Medications Acetaminophen (Tylenol -) 650 mg PO Q6H PRN PRN Reason: FEVER OR PAIN Last Admin: 10/28/16 09:02 Dose: 650 mg Docusate Sodium (Colace -) 100 mg PO TID [facility] Last Admin: 10/28/16 06:26 Dose: 100 mg Enoxaparin Sodium (Lovenox -) 40 mg SQ DAILY [facility] Last Admin: 10/28/16 09:03 Dose: 40 mg Labetalol HCl (Normodyne -) 100 mg PO BID [facility] Last Admin: 10/28/16 09:02 Dose: 100 mg Magnesium Oxide (Mag-Ox -) 400 mg PO ONCE ONE Stop: 10/28/16 10:35 Ondansetron HCl (Zofran Injection) 4 mg IVPB Q6H PRN PRN Reason: NAUSEA Multivit/Folic Acid/Iron ( Vitamins (Sjr) -) 1 tab PO DAILY [facility] Last Admin: 10/28/16 10:12 Dose: 1 tab - Objective Vital Signs: Vital Signs Temperature 98.2 F 10/28/16 09:00 Pulse Rate 77 10/28/16 09:00 Respiratory Rate 18 10/28/16 09:00 Blood Pressure 133/68 10/28/16 09:00 O2 Sat by Pulse Oximetry (%) 96 10/28/16 09:00 Constitutional: Yes: No Distress Eyes: Yes: WNL HENT: Yes: WNL Neck: Yes: WNL Cardiovascular: Yes: Regular Rate and Rhythm Respiratory: Yes: WNL, CTA Bilaterally Gastrointestinal: Yes: WNL Edema: No Labs: CBC, BMP 10/28/16 06:00 10/28/16 06:00 Assessment/Plan CTA: no pe and no aortic dissection. overall unremarkable 41 yo with history of asthma, lbp, recent last week who presents with cp/sob. Post- CP/sob - 2 sets of Troponins neg, EKG without acute ischemic changes. CTA neg for PE or aortic dissection. - telemetry monitoring without arrhythmia - electrolyte repletion, K now normal - Sx's atypical for cardiac. Reproducible to palpation, consider musculoskeletal etiology vs bronchoconstriction given significant improvement with steroids. - patient with anxiety and emotionally labile. Would screen for post- depression at discretion of pmd. -Stable from CV perspective
[2016-10-28] MEDS ORDERED: MAGNESIUM OXIDE 400 MG TABLET (FP) PO ONE (12:00)
== END 2016-10-28 12:50 | disposition home or self-care (01) ==
LOC: JER 12:49 → JERBED 17:17 → J4W 18:40
PROVIDERS: ADMIT Internal Medicine; ATTEND Nurse Practitioner Acute Care
DX: O90.89 Other complications of the puerperium, not elsewhere classified (principal); O14.90 Unspecified pre-eclampsia, unspecified trimester; O99.345 Other mental disorders complicating the puerperium; J45.31 Mild persistent asthma with (acute) exacerbation; G44.89 Other headache syndrome; F41.8 Other specified anxiety disorders
CPT/HCPCS: 36415; 71010-TC; 71275-TC; 80053; 81003; 81015; 82550; 82553; 83735; 83880; 84156; 84484; 84550; 85025; 93005; 93010; 93306-TC; 99285-25; G0378

== ENCOUNTER 2018-06-22 14:53 | Emergency (ER) | payer OTHER ==
[2018-06-22 15:02] VITALS: BP 149/87; PULSE 84; TEMP 98.1; BMI 31.7
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
[2018-06-22] MEDS ORDERED: CYCLOBENZAPRINE HCL 10 MG TABLET (FP) PO ONE (15:24)
[2018-06-22] MEDS ORDERED: LIDOCAINE 5% TOPICAL PATCH TP ONE (15:24)
[2018-06-22] MEDS ORDERED: ACETAMINOPHEN 325 MG TABLET (FP) PO ONE (15:24)
[2018-06-22] MEDS ORDERED: CYCLOBENZAPRINE HCL 10 MG TABLET (FP) ONE (15:59)
[2018-06-22] MEDS ORDERED: ACETAMINOPHEN 325 MG TABLET (FP) ONE (15:59)
[2018-06-22] MEDS ORDERED: LIDOCAINE 5% TOPICAL PATCH ONE (15:59)
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
[2018-06-22] MEDS ORDERED: LIDOCAINE PATCH REMOVAL MC SCH (22:00)
== END 2018-06-22 19:17 | disposition home or self-care (01) ==
LOC: JER 14:53
DX: S13.4XXA Sprain of ligaments of cervical spine, initial encounter (principal); V43.52XA Car driver injured in collision with other type car in traffic accident, initial encounter; Y92.414 Local residential or business street as the place of occurrence of the external cause; Y93.89 Activity, other specified; Y99.8 Other external cause status
CPT/HCPCS: 72125-TC; 73030-TC-LT-FY; 99281-25

== ENCOUNTER 2019-01-19 19:26 | Emergency (ER) | payer OTHER ==
[2019-01-19 19:50] VITALS: BP 136/88; PULSE 76; TEMP 98.3; BMI 31.0
[2019-01-19] MEDS ORDERED: KETOROLAC TROMETHAMINE 60 MG/2 ML VIAL IM ONE (20:18)
[2019-01-19] MEDS ORDERED: KETOROLAC TROMETHAMINE 60 MG/2 ML VIAL ONE (20:20)
--- NOTE | 2019-01-19 20:23 | PDOC ---
History of Present Illness - General Chief Complaint: Back Pain Stated Complaint: BACK PAIN Time Seen by Provider: 01/19/19 20:17 History Source: Patient Exam Limitations: No Limitations - History of Present Illness Initial Comments: 01/19/19 20:18 Patient with acute onset of chronic back pain. was bending while barbecuing this afternoon and had acute onset of spasm across her thoracic back. Has had a long history of chronic low back issues with a known herniated disc in the lumbar spine but has never had this kind of pain in her middle upper back. Denies fevers, denies cough or URI symptoms. was bending over to pick something up while grilling and had the acute pain. Occurred: reports: just prior to arrival, this afternoon Severity: reports: moderate Pain Location: reports: back Method of Injury: Yes: other (bending) Loss of Consciousness: no loss of consciousness Associated Symptoms (Fall): denies symptoms Past History - Travel Traveled outside of the country in the last 30 days: No Close contact w/someone who was outside of country & ill: No - Past Medical History Allergies/Adverse Reactions: Allergies Allergy/AdvReac Type Severity Reaction Status Date / Time oxycodone Allergy Severe Itching Verified 01/19/19 19:44 Penicillins Allergy Severe Itching Verified 01/19/19 19:44 shellfish derived Allergy Severe Swelling Verified 01/19/19 19:44 cefalexin Allergy Severe Itching Uncoded 01/19/19 19:44 Home Medications: Ambulatory Orders Budesonide/Formeterol Fumarate [SYMBICORT 160/4.5mcg -] 1 inh PO DAILY 06/22/18 Ibuprofen [Motrin -] 600 mg PO TID #21 tablet 06/22/18 Cyclobenzaprine HCl 10 mg PO Q8H PRN #14 tablet 01/19/19 Naproxen [Naprosyn -] 500 mg PO BID #30 tablet 01/19/19 Asthma: Yes Cancer: No Cardiac Disorders: No COPD: No Diabetes: No HTN: No Seizures: No Thyroid Disease: No - Surgical History Abdominal Surgery: Yes (hernia repair as an ,) - Reproductive History Expected Date of Delivery: 10/05/16 (#): 3 Para: 1 Cervical CA: No Dysfunctional Uterine Bleeding: No Ectopic : No Endometrial CA: No Endometriosis: No Ovarian CA: No PID: No Polycystic Ovaries: No Therapeutic (s) & number: Yes (X1) Tubal Ligation: No Uterine Fibroids: No - Immunization History Immunization Up to Date: Yes - Suicide/Smoking/Psychosocial Hx Smoking Status: No Smoking History: Never smoked Have you smoked in the past 12 months: No Number of Cigarettes Smoked Daily: 0 Hx Alcohol Use: No Drug/Substance Use Hx: No Substance Use Type: Alcohol Hx Substance Use Treatment: No Trauma Specific PMHX - Complaint Specific PMHX Arthritis: No Back Injury: No Neck Injury: No Hx Sacro Iliac Joint Dysfunction: No Review of Systems - Review of Systems Able to Perform ROS?: Yes Is the patient limited Sami proficient: Yes Constitutional: Yes: Symptoms Reported, See HPI, Malaise. No: Fever HEENTM: Yes: See HPI. No: Symptoms Reported Respiratory: Yes: See HPI. No: Symptoms reported, Cough Musculoskeletal: Yes: Symptoms Reported, See HPI, Back Pain, Muscle Pain Integumentary: Yes: See HPI. No: Symptoms Reported Neurological: Yes: Symptoms reported, See HPI. No: Headache, Paresthesia All Other Systems: Reviewed and Negative *Physical Exam - Vital Signs Last Vital Signs Temp Pulse Resp BP Pulse Ox 98.3 F 76 20 136/88 100 01/19/19 19:44 01/19/19 19:44 01/19/19 19:44 01/19/19 19:44 01/19/19 19:44 - Physical Exam General Appearance: Yes: Nourished, Appropriately Dressed, Apparent Distress, Moderate Distress HEENT: positive: JOELLE, Normal ENT Inspection, TMs Normal, Pharynx Normal Neck: positive: Supple. negative: Tender Respiratory/Chest: positive: Lungs Clear, Normal Breath Sounds Musculoskeletal: positive: Normal Inspection, Decreased Range of Motion (due to spasm), Muscle Spasm (palpable spasm noted to the paravertebral spinous muscles at approximately T8-9-10 area below scapulas bilaterally. Has no bone tenderness crepitus or step-offs,). negative: CVA Tenderness, Vertebral Tenderness Extremity: positive: Normal Capillary Refill, Normal Inspection Integumentary: positive: Normal Color, Dry, Warm. negative: Rash Neurologic: positive: mysql developer II-XII NML intact, Fully Oriented, Alert, Normal Mood/ Affect, Normal Response, Motor Strength 5/5 *DC/Admit/Observation/Transfer Diagnosis at time of Disposition: Upper back strain Qualifiers: Encounter type: initial encounter Qualified Code(s): S29.012A - Strain of muscle and tendon of back wall of thorax, initial encounter - Discharge Dispostion Disposition: HOME Condition at time of disposition: Stable Decision to Admit order: No - Referrals Referrals: Bhumi Nolan MD [Primary Care Provider] - - Patient Instructions Printed Discharge Instructions: DI for Back Strain or Sprain Additional Instructions: Rest, no heavy lifting or exercise until pain is resolved Hot soaks to neck and low back as often as possible/hot showers or Jacuzzis No massage or therapy until spasm is gone Continue Naprosyn 500 mg tablet, 1 tablet every 8 hours for the next 3 days then as needed for pain and swelling Cyclobenzaprine 1-10mg every 8 hours as needed for spasm If not significant improvement within 24 hours with medication and rest regime, followup with private physician for change in medications and /or therapy. - Post Discharge Activity Forms/Work/School Notes: Back to Work
--- NOTE | 2019-01-22 12:54 | EKG ---
Test Reason : Blood Pressure : / mmHG Vent. Rate : 074 BPM Atrial Rate : 074 BPM P-R Int : 180 ms QRS Dur : 080 ms QT Int : 378 ms P-R-T Axes : 028 015 038 degrees QTc Int : 419 ms NORMAL SINUS RHYTHM NONSPECIFIC T WAVE ABNORMALITY ABNORMAL ECG WHEN COMPARED WITH ECG OF 27-OCT-2016 12:56, T WAVE INVERSION NO LONGER EVIDENT IN INFERIOR LEADS T WAVE INVERSION LESS EVIDENT IN ANTERIOR LEADS Confirmed by ANNABELLA SORTO, ROMI ([id number]) on 01/22/2019 12:54:15 PM Referred By: Confirmed By:ROMI WINCHESTER MD
== END 2019-01-19 20:26 | disposition home or self-care (01) ==
LOC: JERFT 19:26
PROC: 3E0233Z Introduction of Anti-inflammatory into Muscle, Percutaneous Approach (ICD-10-PCS; principal; 2019-01-19)
DX: S29.012A Strain of muscle and tendon of back wall of thorax, initial encounter (principal); M62.830 Muscle spasm of back; X50.9XXA Other and unspecified overexertion or strenuous movements or postures, initial encounter; Y93.G3 Activity, cooking and baking; Y92.89 Other specified places as the place of occurrence of the external cause; Y99.8 Other external cause status
CPT/HCPCS: 93005; 93010; 99281-25

== ENCOUNTER 2019-06-11 11:29 | Emergency (ER) | payer OTHER ==
[2019-06-11 11:34] VITALS: BP 133/81; PULSE 69; TEMP 98.1; BMI 31.4
--- NOTE | 2019-06-11 12:05 | PDOC ---
*Physical Exam - Vital Signs Last Vital Signs Temp Pulse Resp BP Pulse Ox 98.1 F 69 16 133/81 98 06/11/19 11:31 06/11/19 11:31 06/11/19 11:31 06/11/19 11:31 06/11/19 11:31 - Physical Exam Comments: 06/11/19 12:04 The patient was examined by [ERWIN carroll] under my direct supervision. I personally evaluated the patient. I concur with the above findings and the plan of care. ED Treatment Course - LABORATORY CBC & Chemistry Diagram: 06/11/19 12:30 06/11/19 12:30 Discharge - Discharge Information Problems reviewed: Yes Clinical Impression/Diagnosis: Ovarian cyst Qualifiers: Laterality: right Qualified Code(s): N83.201 - Unspecified ovarian cyst, right side Condition: Stable Disposition: HOME - Follow up/Referral Referrals: Bhumi Nolan MD [Primary Care Provider] - - Patient Discharge Instructions Patient Printed Discharge Instructions: DI for Ovarian Cyst Additional Instructions: You were evaluated for your abdominal pain today. You have a right-sided ovarian cyst. Your CAT scan was negative for appendicitis. You may take Motrin 600 mg every 6 hours as needed for pain. Your ultrasound showed that your IUD may be out of place. 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 You may use warm compresses to the area. Return to the ER for fevers, worsening abdominal pain, vomiting, diarrhea or if you have any changes in your symptoms. - Post Discharge Activity Work/Back to School Note: Back to Work
[2019-06-11] MEDS ORDERED: ACETAMINOPHEN 1000 MG/100 ML VIAL (NON FORMULARY) IVPB ONE (12:15)
[2019-06-11] MEDS ORDERED: SODIUM CHLORIDE 1,000 ML IV STA ×2 (12:15→14:23)
[2019-06-11] MEDS ORDERED: ONDANSETRON 4 MG/2 ML VIAL IVPUSH ONE (12:15)
[2019-06-11] MEDS ORDERED: ACETAMINOPHEN INJECTION 100 ML IVPB ONE (12:17)
[2019-06-11] MEDS ORDERED: ONDANSETRON 4 MG/2 ML VIAL ONE (12:17)
[2019-06-11 12:48] LABS: BASO % 0.4 % (0-2.0); EOS % 2.4 % (0-4.5); HEMATOCRIT 35.6 % (32.4-45.2); HEMOGLOBIN 11.5 GM/dL (10.7-15.3); LYMPH % 34.5 % (8-40); MCH 27.1 pg (25.7-33.7); MCHC 32.3 g/dl (32.0-36.0); MEAN CELL VOLUME 84.1 fl (80-96); MEAN PLT VOLUME 8.5 fl (7.5-11.1); MONO % 8.7 % (3.8-10.2); PLATELET COUNT 224 K/MM3 (134-434); RBC 4.24 M/mm3 (3.60-5.2); WHITE BLOOD COUNT 4.3 K/mm3 (4.0-10.0)
[2019-06-11 13:09] LABS: INR 1.13 (0.83-1.09); PROTHROMBIN TIME (PATIENT) 13.4 SEC (9.7-13.0)
[2019-06-11 13:21] LABS: ALBUMIN 3.8 g/dl (3.4-5.0); BILIRUBIN,TOTAL 0.6 mg/dL (0.2-1); CALCIUM 9.1 mg/dL (8.5-10.1); POTASSIUM 3.7 mmol/L (3.5-5.1); TOT PROT 7.9 g/dl (6.4-8.2)
--- NOTE | 2019-06-11 13:24 | PDOC ---
History of Present Illness - General Chief Complaint: Pain, Acute Stated Complaint: RT LWR ABD PAIN Time Seen by Provider: 06/11/19 12:01 History Source: Patient Exam Limitations: No Limitations - History of Present Illness Is this a multiple visit Asthma Patient?: No Past History - Travel Traveled outside of the country in the last 30 days: No Close contact w/someone who was outside of country & ill: No - Past Medical History Allergies/Adverse Reactions: Allergies Allergy/AdvReac Type Severity Reaction Status Date / Time oxycodone Allergy Severe Itching Verified 06/11/19 11:34 Penicillins Allergy Severe Itching Verified 06/11/19 11:34 shellfish derived Allergy Severe Swelling Verified 06/11/19 11:34 cefalexin Allergy Severe Itching Uncoded 06/11/19 11:34 Home Medications: Ambulatory Orders Budesonide/Formeterol Fumarate [SYMBICORT 160/4.5mcg -] 1 inh PO DAILY 06/22/18 Ibuprofen [Motrin -] 600 mg PO TID #21 tablet 06/22/18 Cyclobenzaprine HCl 10 mg PO Q8H PRN #14 tablet 01/19/19 Naproxen [Naprosyn -] 500 mg PO BID #30 tablet 01/19/19 Asthma: Yes Cancer: No Cardiac Disorders: No COPD: No Diabetes: No HTN: No Seizures: No Thyroid Disease: No - Surgical History Abdominal Surgery: Yes (hernia repair as an ,) - Reproductive History Expected Date of Delivery: 10/05/16 (#): 3 Para: 1 Cervical CA: No Dysfunctional Uterine Bleeding: No Ectopic : No Endometrial CA: No Endometriosis: No Ovarian CA: No PID: No Polycystic Ovaries: No Therapeutic (s) & number: Yes (X1) Tubal Ligation: No Uterine Fibroids: No - Immunization History Immunization Up to Date: Yes - Psycho Social/Smoking Cessation Hx Smoking Status: No Smoking History: Never smoked Have you smoked in the past 12 months: No Number of Cigarettes Smoked Daily: 0 Hx Alcohol Use: Yes (OCCASIONALLY) Drug/Substance Use Hx: No Substance Use Type: Alcohol Hx Substance Use Treatment: No Review of Systems - Review of Systems Able to Perform ROS?: Yes Comments:: 06/11/19 13:57 CONSTITUTIONAL: Absent: fever, chills, diaphoresis, generalized weakness, malaise, loss of appetite HEENT: Absent: rhinorrhea, nasal congestion, throat pain, throat swelling, difficulty swallowing, mouth swelling, ear pain, eye pain, visual Changes CARDIOVASCULAR: Absent: chest pain, loss of consciousness, palpitations, irregular heart rate, peripheral edema RESPIRATORY: Absent: cough, shortness of breath, dyspnea with exertion, orthopnea, wheezing, stridor, hemoptysis GASTROINTESTINAL: Present: Right lower quadrant pain. Absent: abdominal distension, nausea, vomiting, diarrhea, constipation, melena, hematochezia GENITOURINARY: Absent: dysuria, frequency, urgency, hesitancy, hematuria, flank pain, genital pain MUSCULOSKELETAL: Absent: myalgia, arthralgia, joint swelling SKIN: Absent: rash, itching, pallor HEMATOLOGIC/IMMUNOLOGIC: Absent: easy bleeding, easy bruising, lymphadenopathy, frequent infections ENDOCRINE: Absent: unexplained weight gain, unexplained weight loss, heat intolerance, cold intolerance NEUROLOGIC: Absent: headache, focal weakness or paresthesias, dizziness, unsteady gait, seizure, mental status changes, bladder or bowel incontinence PSYCHIATRIC: Absent: anxiety, depression, suicidal or homicidal ideation, hallucinations. Is the patient limited Danish proficient: No *Physical Exam - Vital Signs Last Vital Signs Temp Pulse Resp BP Pulse Ox 98.1 F 69 16 133/81 98 06/11/19 11:31 06/11/19 11:31 06/11/19 11:31 06/11/19 11:31 06/11/19 11:31 - Physical Exam Comments: 06/11/19 13:57 GENERAL: Well developed, well nourished. Awake and alert. No acute distress. HEENT: Normocephalic, atraumatic. PERRLA, EOMI. No conjunctival pallor. Sclera are non- icteric. Moist mucous membranes. Oropharynx is clear. NECK: Supple. Full ROM. No JVD. Carotid pulses 2+ and symmetric, without bruits. No thyromegaly. No lymphadenopathy. CARDIOVASCULAR: Regular rate and rhythm. No murmurs, rubs, or gallops. Distal pulses are 2+ and symmetric. PULMONARY: No evidence of respiratory distress. Lungs clear to auscultation bilaterally. No wheezing, rales or rhonchi. ABDOMINAL: Tenderness to palpation of the right lower quadrant without Rovsing sign. Negative obturator and psoas signs. No right adnexal pain. Soft. Non-tender. Non-distended. No rebound or guarding. No organomegaly. Normoactive bowel sounds. MUSCULOSKELETAL Normal range of motion at all joints. No bony deformities or tenderness. No CVA tenderness. EXTREMITIES: No cyanosis. No clubbing. No edema. No calf tenderness. SKIN: Warm and dry. Normal capillary refill. No rashes. No jaundice. NEUROLOGICAL: Alert, awake, appropriate. Cranial nerves 2-12 intact. No deficits to light touch and temperature in face, upper extremities and lower extremities. No motor deficits in the in face, upper extremities and lower extremities. Normoreflexic in the upper and lower extremities. Normal speech. Toes are down- going bilaterally. Gait is normal without ataxia. PSYCHIATRIC: Cooperative. Good eye contact. Appropriate mood and affect. ED Treatment Course - LABORATORY CBC & Chemistry Diagram: 06/11/19 12:30 06/11/19 12:30 Medical Decision Making - Medical Decision Making 06/11/19 13:58 The patient is a 44-year-old female in no past medical history, presents to the ER today for right lower quadrant pain. She states that the pain started approximately 2 days ago and is gotten worse. She is tried taking over-the- counter pain medication without relief of her symptoms. She denies associated nausea, vomiting diarrhea and constipation. She notes that her last menstrual cycle was May 22 and had some increased clots at that time. She was seen at urgent care and was told to come to the ER for further evaluation to rule out appendicitis. Patient denies fevers, chills, difficulty breathing, shortness of breath, chest pain, urinary symptoms, lightheadedness and dizziness. A/P: Right lower quadrant pain On exam patient tender in the right lower quadrant without rebound or guarding. Differential diagnosis includes but is not limited to: Appendicitis, diverticulitis, UTI, pyelo, ovarian cysts, tubal , fibroids, constipation, gastroenteritis. Labs, urine ordered IV fluids, ofirmev given Transvaginal ultrasound and CTAP ordered Reevaluate 06/11/19 15:52 Transvaginal ultrasound shows a 1.9 cm cyst on the right ovary primarily. IUD is also displaced in the cervical canal. Pelvic exam reveals strings present in the vaginal canal that trace back to the cervix. No obvious IUD in the vaginal canal. Patient reports that she also has dyspareunia, possible this is related to the IUD. CTAP is negative for appendicitis. Patient reported having itching after the CT with IV contrast. Second liter of fluids and Benadryl given. No airway issues. No leukocytosis. 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 Discharge home I discussed the physical exam findings, ancillary test results and final diagnoses with the patient. I answered all of the patient's questions. The patient was satisfied with the care received and felt comfortable with the discharge plan and treatment plan. The Patient agrees to follow up with the primary care physician/specialist within 24-72 hours. Return precautions were given. Discharge - Discharge Information Problems reviewed: Yes Clinical Impression/Diagnosis: Ovarian cyst Qualifiers: Laterality: right Qualified Code(s): N83.201 - Unspecified ovarian cyst, right side Condition: Stable Disposition: HOME - Admission No - Follow up/Referral Referrals: Bhumi Nolan MD [Primary Care Provider] - - Patient Discharge Instructions Patient Printed Discharge Instructions: DI for Ovarian Cyst Additional Instructions: You were evaluated for your abdominal pain today. You have a right-sided ovarian cyst. Your CAT scan was negative for appendicitis. You may take Motrin 600 mg every 6 hours as needed for pain. Your ultrasound showed that your IUD may be out of place. Please follow-up with your SHIPPING ROOM SUPERVISOR this week for further management of your IUD. You may use warm compresses to the area. Return to the ER for fevers, worsening abdominal pain, vomiting, diarrhea or if you have any changes in your symptoms. - Post Discharge Activity Work/Back to School Note: Back to Work
[2019-06-11 15:29] LABS: PH,URINE 5.5 (5.0-8.0); URINE APPEARANCE CLEAR; URINE BILIRUBIN NEGATIVE (NEGATIVE); URINE COLOR YELLOW; URINE GLUCOSE (UA) NEGATIVE (NEGATIVE); URINE KETONE NEGATIVE (NEGATIVE); URINE LEUK ESTERASE NEGATIVE (NEGATIVE); URINE NITRITE NEGATIVE (NEGATIVE); URINE PROTEIN NEGATIVE (NEGATIVE); URINE UROBILINOGEN 0.2 mg/dL (0.2-1.0)
== END 2019-06-11 16:24 | disposition home or self-care (01) ==
LOC: JER 11:29
PROC: 3E033NZ Introduction of Analgesics, Hypnotics, Sedatives into Peripheral Vein, Percutaneous Approach (ICD-10-PCS; principal; 2019-06-11)
PROC: 3E033GC Introduction of Other Therapeutic Substance into Peripheral Vein, Percutaneous Approach (ICD-10-PCS; 2019-06-11)
PROC: 3E0337Z Introduction of Electrolytic and Water Balance Substance into Peripheral Vein, Percutaneous Approach (ICD-10-PCS; 2019-06-11)
DX: N83.201 Unspecified ovarian cyst, right side (principal); Z88.6 Allergy status to analgesic agent; Z88.0 Allergy status to penicillin; Z91.013 Allergy to seafood; J45.909 Unspecified asthma, uncomplicated
CPT/HCPCS: 36415; 74177-TC; 76830-TC; 80053; 81003; 83690; 84703; 85025; 85610; 99284-25; J0131; J7030

== ENCOUNTER 2019-08-31 02:49 | Emergency (ER) | payer OTHER ==
--- NOTE | 2019-08-31 03:24 | PDOC ---
History of Present Illness - General Stated Complaint: CHEST PAIN Time Seen by Provider: 08/31/19 03:23 - History of Present Illness Initial Comments: 08/31/19 04:32 The patient is a 44 year old female with a history of asthma who presents for evaluation of chest pain and sore throat. The patient reports a 1 day history of sore throat with associated chest congestion. She reports sharp right sided chest pain with radiation to her shoulder as well prompting her presentation to the ED for further evaluation. She otherwise denies fevers, chills, SOB, nausea , vomiting, abdominal pain, or changes with urination or bowel movements. Past History - Past Medical History Allergies/Adverse Reactions: Allergies Allergy/AdvReac Type Severity Reaction Status Date / Time oxycodone Allergy Severe Itching Verified 06/11/19 11:34 Penicillins Allergy Severe Itching Verified 06/11/19 11:34 shellfish derived Allergy Severe Swelling Verified 06/11/19 11:34 cefalexin Allergy Severe Itching Uncoded 06/11/19 11:34 Home Medications: Ambulatory Orders Budesonide/Formeterol Fumarate [SYMBICORT 160/4.5mcg -] 1 inh PO DAILY 06/22/18 Ibuprofen [Motrin -] 600 mg PO TID #21 tablet 06/22/18 Cyclobenzaprine HCl 10 mg PO Q8H PRN #14 tablet 01/19/19 Naproxen [Naprosyn -] 500 mg PO BID #30 tablet 01/19/19 Azithromycin [Zithromax] 500 mg PO DAILY #5 tablet 08/31/19 Asthma: Yes Cancer: No Cardiac Disorders: No COPD: No Diabetes: No HTN: No Seizures: No Thyroid Disease: No - Surgical History Abdominal Surgery: Yes (hernia repair as an infant,) - Reproductive History Expected Date of Delivery: 10/05/16 (#): 3 Para: 1 Cervical CA: No Dysfunctional Uterine Bleeding: No Ectopic : No Endometrial CA: No Endometriosis: No Ovarian CA: No PID: No Polycystic Ovaries: No Therapeutic (s) & number: Yes (X1) Tubal Ligation: No Uterine Fibroids: No - Immunization History Immunization Up to Date: Yes - Psycho Social/Smoking Cessation Hx Smoking Status: No Smoking History: Never smoked Have you smoked in the past 12 months: No Number of Cigarettes Smoked Daily: 0 Hx Alcohol Use: Yes (OCCASIONALLY) Drug/Substance Use Hx: No Substance Use Type: Alcohol Hx Substance Use Treatment: No Review of Systems - Review of Systems Comments:: 08/31/19 04:35 Constitutional: No fevers, chills, fatigue, malaise HEENT: Sore Throat. No Rhinorrhea, nasal congestion, visual changes Cardiovascular: Chest pain. No syncope, palpitations, lightheadedness Respiratory: No Cough, SOB, Hemoptysis, Gastrointestinal: No Abdominal pain, Nausea, Vomiting, Constipation, Diarrhea, Melena Genitourinary: No Dysuria, Frequency, Urgency, Hesitancy, Hematuria, Flank pain Musculoskeletal: No Myalgia, arthralgia Skin: No rashes, itching, bruising, pallor Neurologic: No Headache, Dizziness, Numbness, Weakness, or Tingling Psychiatric: No Hallucinations. No SI or HI *Physical Exam - Physical Exam 08/31/19 04:36 General Appearance: Nourished. No Apparent Distress HEENT: EOMI, JOELLE. Tonsillar Exudate, Tonsillar Erythema noted, No Pharyngeal Erythema Neck: No Cervical Lymphadenopathy Respiratory/Chest: Lungs Clear, Normal Breath Sounds. No Crackles, Rales, Rhonchi, Wheezing Cardiovascular: Regular Rhythm, Regular Rate. No Murmur, Gallops, Rubs Gastrointestinal/Abdominal: Normal Bowel Sounds, Soft. No Guarding, Rebound, Tenderness Musculoskeletal: No CVA Tenderness Extremity: Normal Capillary Refill Integumentary: Normal Color, Dry, Warm Neurologic: Fully Oriented, Alert, Normal Mood/Affect, Normal Response, ED Treatment Course - LABORATORY CBC & Chemistry Diagram: 08/31/19 03:45 08/31/19 03:45 Medical Decision Making - Medical Decision Making 08/31/19 04:37 The patient is a 44 year old female with a history of asthma who presents for evaluation of chest pain and sore throat. Given the patient's history and physical exam, we will obtain a cbc, cmp, troponin, ekg, rapid strep, chest plain film to evaluate further. We will treat with pepcid, tylenol and continue to monitor and reassess while here in the ED. 08/31/19 04:41 CBC, cmp, troponin were unremarkable. Chest plain film did not demonstrate any acute pathology. Given the patient's exudates, we will treat with azithromycin. The patient was reassessed and reports improvement in their symptoms. We are comfortable discharging the patient home in stable condition on azithromycin. Patient made aware of impression and plan, return precautions discussed including but not limited to worsening pain or symptoms, fevers, or signs of infection, chest pain, respiratory distress, inability to tolerate oral intake, dehydration, syncope, or neurologic changes. The patient is to follow up with PMD as recommended within 1 week, follow up information provided and the patient will call for an appointment. The patient is to take medications as instructed for duration of time and continue with supportive care , avoid triggers and precipitants. Patient is safe for outpatient follow-up. Discharge - Discharge Information Problems reviewed: Yes Clinical Impression/Diagnosis: Chest pain Qualifiers: Chest pain type: unspecified Qualified Code(s): R07.9 - Chest pain, unspecified Condition: Stable Disposition: HOME - Additional Discharge Information Prescriptions: Azithromycin [Zithromax] 500 mg PO DAILY #5 tablet - Follow up/Referral Referrals: Melania Castano MD [Primary Care Provider] - - Patient Discharge Instructions Patient Printed Discharge Instructions: DI for Atypical Chest Pain Additional Instructions: 1) Please follow-up with your primary care doctor in the next 2-3 days. Please call tomorrow to schedule a follow up appointment. If you cannot follow up with your doctor within 1 week please return to the Emergency Department for any urgent issues. 2) Your laboratory / imaging results were normal here in the ER. 3) If you have any worsening of symptoms or any other concerns, please return to the ER immediately. Return if worsening symptoms including fevers, headache, vomiting, visual or hearing disturbances, abdominal pain, chest pain, shortness of breath, syncope, dehydration, inability to take things by mouth/vomiting, altered mental status, or worsening concerning symptoms. 4) Please continue taking your home medications as directed. Your medications on discharge include Azithromycin. Side effects may include upset stomach, abdominal pain, vomiting, or diarrhea. Do not drink alcohol with your medications. - Post Discharge Activity
[2019-08-31] MEDS ORDERED: SODIUM CHLORIDE 1,000 ML IV STA (03:40)
[2019-08-31] MEDS ORDERED: ACETAMINOPHEN 1000 MG/100 ML VIAL (NON FORMULARY) IVPB ONE (03:40)
[2019-08-31] MEDS ORDERED: FAMOTIDINE 20 MG/50 ML IVPB 20 MG/50 ML MG IVPB ONE ×2 (03:40→05:03)
[2019-08-31 03:41] VITALS: TEMP 97.6; BMI 31.0
[2019-08-31] MEDS ORDERED: AZITHROMYCIN IVPB 500 MG in DEXTROSE 5%-WATER - 250 ML IVPB ONE (03:52)
--- NOTE | 2019-08-31 03:54 | PDOC ---
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 - Physicial Exam PE: 08/31/19 06:22 Hear RRR Lungs CTAB abd soft NT ND + exudates on her tonsils. Pt has no neck stiffness Pt afebrile Agree with resident exam - Medical Decision Making 08/31/19 03:54 Labs: test Strep cx:
[2019-08-31 03:55] LABS: BASO % 0.9 % (0-2.0); EOS % 5.7 % (0-4.5); HEMATOCRIT 33.6 % (32.4-45.2); HEMOGLOBIN 10.7 GM/dL (10.7-15.3); LYMPH % 32.7 % (8-40); MCH 26.9 pg (25.7-33.7); MCHC 31.9 g/dl (32.0-36.0); MEAN CELL VOLUME 84.5 fl (80-96); MEAN PLT VOLUME 8.9 fl (7.5-11.1); MONO % 13.3 % (3.8-10.2); NEUT % 47.4 % (42.8-82.8); PLATELET COUNT 182 K/MM3 (134-434); RBC 3.97 M/mm3 (3.60-5.2); RDW 15.9 % (11.6-15.6); WHITE BLOOD COUNT 3.7 K/mm3 (4.0-10.0)
[2019-08-31] MEDS ORDERED: ACETAMINOPHEN INJECTION 100 ML IVPB ONE (04:13)
[2019-08-31] MEDS ORDERED: AZITHROMYCIN IVPB 500 MG/250 ML BAG IVPB ONE (04:13)
[2019-08-31 04:31] LABS: ALBUMIN 3.4 g/dl (3.4-5.0); BILIRUBIN,TOTAL 0.4 mg/dL (0.2-1); BLOOD UREA NITROGEN 7.7 mg/dL (7-18); CALCIUM 8.6 mg/dL (8.5-10.1); POTASSIUM 3.5 mmol/L (3.5-5.1); TOT PROT 7.2 g/dl (6.4-8.2)
[2019-08-31 05:38] VITALS: BP 150/83; PULSE 76
--- NOTE | 2019-08-31 15:27 | EKG ---
Test Reason : Blood Pressure : / mmHG Vent. Rate : 071 BPM Atrial Rate : 071 BPM P-R Int : 182 ms QRS Dur : 082 ms QT Int : 382 ms P-R-T Axes : 033 -01 028 degrees QTc Int : 415 ms NORMAL SINUS RHYTHM NONSPECIFIC T WAVE ABNORMALITY ABNORMAL ECG WHEN COMPARED WITH ECG OF 19-JAN-2019 19:28, NO SIGNIFICANT CHANGE WAS FOUND Confirmed by MD JANENE, PRITI ([id number]) on 08/31/2019 3:26:32 PM Referred By: Confirmed By:PRITI WATTERS MD
== END 2019-08-31 05:38 | disposition home or self-care (01) ==
LOC: JER 02:49
PROC: 3E03329 Introduction of Other Anti-infective into Peripheral Vein, Percutaneous Approach (ICD-10-PCS; principal; 2019-08-31)
PROC: 3E033NZ Introduction of Analgesics, Hypnotics, Sedatives into Peripheral Vein, Percutaneous Approach (ICD-10-PCS; 2019-08-31)
DX: R07.9 Chest pain, unspecified (principal); J45.909 Unspecified asthma, uncomplicated
CPT/HCPCS: 36415; 71045-TC-FY; 80053; 82550; 82553; 84484; 84703; 85025; 87070; 87880; 93005; 93010; 99283-25; J0131; J7030

== ENCOUNTER 2020-05-05 08:49 | Inpatient (IN) | payer OTHER ==
--- NOTE | 2020-04-14 15:12 | HP ---
DATE OF ADMISSION: 05/05/2020 DATE OF DICTATION: 03/23/2020 DATE OF SURGERY: 05/05/2020 BRIEF HISTORY: This is a 44-year-old female who was evaluated by a surgeon in [facility] for a ventral hernia. At that point, the patient was told she did not have a hernia. However, she still had pain in the area and a large bump, and therefore, she sought further opinions. She has also been worked up by her primary care physician with a CAT scan that demonstrated a small, fat-containing umbilical hernia and some other nonspecific findings, but no other ventral hernia where the patient states she has a lump. She had an ultrasound done in August of last year, done at [facility]. The ultrasound demonstrated a large ventral hernia in the upper abdomen, and this is the area where the patient has pain and discomfort. Two weeks prior to my office visit, the patient had an acute attack of pain in the upper abdomen associated with the lump. She took several pictures, and clearly, this area was swollen and tender according to the patient. It gave her mild nausea without vomiting. By the following day, the swelling had improved, and the pain had resolved as well. She has had no change in bowel habits. PAST MEDICAL HISTORY: Significant for asthma and hypercholesterolemia. She has no coronary artery disease or diabetes. PAST SURGICAL HISTORY: She has had 2 C-sections in the past. ALLERGIES: PENICILLINS, OXYCODONE, SHELLFISH, and TOMATOES. MEDICATIONS: Lipitor, vitamins. SOCIAL HISTORY: Patient does not smoke. No history of drug use. She drinks socially. PHYSICAL EXAMINATION: Abdomen: Patient examined in the erect and supine position. She has a midline diastasis from xiphoid to umbilicus. She has a chronically incarcerated hernia above the umbilicus, and she has a small umbilical hernia noted as well. The hernia above the umbilicus is approximately the size of my fist. It is soft, not reducible. It is not tender. IMPRESSION/PLAN: Chronically incarcerated ventral/epigastric hernia, chronically incarcerated umbilical hernia. This is a 44-year-old female who is symptomatic from her ventral/epigastric hernia. That hernia is above the umbilicus, and she has a discrete hernia at the level of the umbilicus. She has 2 discrete problems, and given the size and proximity to each other, this patient has a complex hernia that will require a component separation for repair. I have discussed the various surgical approaches such as laparoscopic and a robotic versus open. Given the nature of this hernia and location, I think she is best approached in an open fashion with mesh. Patient will be scheduled for a bilateral component separation repair of complex ventral hernia with mesh, all done in an open fashion. The indications, alternatives, and complications of this procedure are discussed, questions answered. We will plan to obtain written consent the surgery. Antonio FRIEND [id number] cc: Dr. Grossman
[2020-04-26 17:15] VITALS: BMI 31.6
[2020-05-05] MEDS ORDERED: ONDANSETRON 4 MG/2 ML VIAL IVPUSH PRN ×2 (09:05→11:41)
[2020-05-05] MEDS ORDERED: oxyCODONE HCL 5 MG TABLET PO PRN (09:05)
[2020-05-05] MEDS ORDERED: LACTATED RINGERS SOLUTION 1,000 ML IV SCH (09:15)
[2020-05-05] MEDS ORDERED: MIDAZOLAM HCL 2 MG/2 ML SINGLE DOSE VIAL ONE (09:56)
[2020-05-05] MEDS ORDERED: BUPIVACAINE HCL/PF 0.5% (5 MG/ML) 30 ML VIAL IJ ONE (09:57)
[2020-05-05] MEDS ORDERED: DEXAMETHASONE SOD PHOSPHATE/PF 10 MG/ML SDV ONE (09:57)
[2020-05-05] MEDS ORDERED: HYDROmorphone HCL/PF 1 MG/ML VIAL ONE (10:20)
[2020-05-05] MEDS ORDERED: DEXAMETHASONE SOD PHOSPHATE 4 MG/1 ML VIAL ONE (11:06)
[2020-05-05] MEDS ORDERED: ONDANSETRON 4 MG/2 ML VIAL ONE ×2 (11:06→13:03)
[2020-05-05] MEDS ORDERED: ceFAZolin SODIUM 1 GM VIAL ONE (11:15)
[2020-05-05] MEDS ORDERED: PROPOFOL 20 ML ONE (11:19)
[2020-05-05] MEDS ORDERED: HYDROmorphone HCl 2 MG/ML VIAL IVPB PRN (11:44)
[2020-05-05] MEDS ORDERED: traMADol HCL 50 MG TABLET PO PRN (11:45)
[2020-05-05] MEDS ORDERED: D5-1/2NS+20 MEQ KCL - 20 MEQ/1,000 ML INFUS.BAG IV SCH (11:45)
[2020-05-05] MEDS ORDERED: IBUPROFEN 800 MG/8 ML IJ IVPB SCH (12:00)
[2020-05-05] MEDS ORDERED: GLYCOPYRROLATE 0.2 MG/1 ML VIAL ONE (12:36)
[2020-05-05] MEDS ORDERED: NEOSTIGMINE METHYLSULFATE 0.5 MG/ML - 10 ML MDV ONE (12:36)
[2020-05-05] MEDS ORDERED: KETOROLAC TROMETHAMINE 30 MG/1 ML VIAL ONE (12:39)
--- NOTE | 2020-05-05 13:16 | OP ---
DATE OF OPERATION: 05/05/2020 PREOPERATIVE DIAGNOSIS: Complex chronically incarcerated ventral hernia/epigastric hernia, chronically incarcerated umbilical hernia. POSTOPERATIVE DIAGNOSIS: Complex chronically incarcerated ventral hernia/epigastric hernia, chronically incarcerated umbilical hernia. PROCEDURE: Open repair of complex chronically incarcerated ventral hernia with mesh x2, bilateral component separation. SURGEON: Olu Dejesus MD CLAIMS CORRESPONDENCE CLERK: Joel Barba MD ANESTHESIA: Luly Jordan MD (general). ESTIMATED BLOOD LOSS: Minimal. SPECIMEN: Portion of omentum with hernia sac. INDICATION FOR PROCEDURE: This is a 44-year-old female who is symptomatic from her large chronically incarcerated ventral epigastric hernia. She was also noted to have an umbilical hernia. She wished to have these 2 hernias repaired. DESCRIPTION OF PROCEDURE: Patient identified and appropriately positioned on the operating table. After placement of general anesthesia, abdomen prepped and draped in the usual sterile fashion with ChloraPrep. A midline incision overlying both defects was made, deepened to subcutaneous tissue. The hernia in the epigastrium identified, dissected down to the level of the fascia circumferentially. The hernia at the umbilicus identified as well and dissected down to the level of the fascia. There was a fascial bridge between these 2 defects that was approximately 3 cm in size. The fascial bridge was divided sharply to create 1 large defect. Due to the generosity of the hernia in the epigastrium and the frayed tissue noted, a simple placement of mesh in the abdominal cavity would not be a good idea. An onlay would be a terrible idea, and therefore a component separation was performed. The retrorectus space on the right side was entered by dividing the anterior sheath, the muscle identified, split, and the posterior sheath subsequently identified, and using blunt dissection, the space in the retrorectus on the right side was developed bluntly out to the perforating vessels. Just medial to the perforating vessel, the fascia was subsequently sharply divided, and a separation of the transversus from the rectus and obliques was done. This was taken approximately 4 inches above and below the defect. A similar approach in entering the left retrorectus space was used as well. The left anterior sheath was divided, the muscle lifted and bluntly off the posterior sheath. This dissection was taken out laterally just medial to the perforating vessels. A myofascial separation was performed again, dividing the transversus attachments from the obliques and rectus. This again was taken 4 inches above and below the defect. The patient noted to have a midline diastasis, and the 2 fascial attachments on either side were sharply divided in the midline. Due to the defect size, a large 20 x 20 piece of Versatex along with a 10 x 15 piece of Parietex was used for the operative repair. The 2 pieces of mesh were sewn together in a hybrid fashion. The Parietex was laid on the transversus side. The mesh fanned out in all directions and then anchored with interrupted AbsorbaTacks circumferentially. The mesh irrigated, the operative field examined, noted to be hemostatic. The midline fascia was then subsequently reapproximated with a running 0 PDS suture placed in a 4:1 fashion. The subcutaneous space irrigated, a 10 flat KELLI placed, brought out a separate stab incision, and the skin closed with armida followed by Dermabond. At the conclusion of this case, sponge, needle, instrument counts were correct. ATTESTATION: Brief operative note handwritten on the preprinted form. [facility] queried prior to giving any narcotics. The mesh used with Versatex and Parietex. The anchoring system AbsorbaTack. The mesh placed in the retrorectus location. OLU DEJESUS M.D. [id number] cc: Melania Castano MD
[2020-05-05] MEDS: IBUPROFEN 800 MG/8 ML IJ IVPB SCH (17:26)
[2020-05-06] MEDS ORDERED: HYDROmorphone HCl 2 MG/ML VIAL ONE (01:13)
[2020-05-06] MEDS ORDERED: HYDROmorphone HCl 2 MG/ML VIAL IVPB PRN (02:43)
[2020-05-06 07:24] VITALS: BP 122/73; PULSE 75
[2020-05-06 09:52] VITALS: TEMP 97.8
[2020-05-06] MEDS ORDERED: PANTOPRAZOLE SODIUM 40 MG VIAL IVPUSH SCH (10:00)
[2020-05-06] MEDS ORDERED: ENOXAPARIN NA (PORCINE) 40 MG/0.4 ML DISP.SYRIN SQ SCH (10:00)
[2020-05-06] MEDS ORDERED: BUDESONIDE/FORMETEROL FUMARATE 160/4.5 mcg INHALER IH SCH (10:00)
[2020-05-06] MEDS: IBUPROFEN 800 MG/8 ML IJ IVPB SCH (10:06)
--- NOTE | 2020-05-06 10:52 | DS ---
DATE OF ADMISSION: 05/05/2020 DATE OF DISCHARGE: 05/06/2020 ADMITTING DIAGNOSIS: Postoperative pain, complex ventral hernia. DISCHARGE DIAGNOSIS: Postoperative pain, complex ventral hernia. BRIEF HISTORY: This is a 44-year-old female who was admitted to [facility] for surgical management of a complex ventral hernia. On May 05, she underwent repair of this hernia utilizing mesh as well as component separation. Please reference Dr. Olu Victor's operative report. She was admitted for postoperative pain. She is being discharged home today, May 06. She is tolerating a regular diet. She is ambulating. She is voiding. Her pain is controlled with oral Ultram medication. She will go home with a new prescription for Ultram. She will resume her usual home medications of iron, inhalers, and vitamins. She will go home with a Fabio-Addison drain. She will empty it daily or when full and record the amount. She will sponge bathe or shower while protecting the drain. She will not lift anything more than 20 pounds. She is okay to walk. She will avoid driving. She will need at least 2 weeks off from work. She will follow with Dr. Victor in approximately 1-2 weeks to have her drain removed and approximately 2-3 weeks to have her armida removed. At the time of her discharge, she is afebrile and her pain is well controlled. DO TRESA AUGUSTINE/[id number]
--- NOTE | 2020-05-07 13:36 | PATH ---
Surgical Pathology Report Patient Name: EASTON MENDEZ Med. Rec. #: [id number] /Age/Gender: 1975 (Age: 44) / F Account: [id number] Location: [facility] Taken: 05/05/2020 Received: 05/05/2020 Reported: 05/07/2020 Physicians: Olu Victor Specimen(s) Received OMENTUM WITH HERNIA SAC Clinical History Complex ventral hernia Final Diagnosis PORTION OF OMENTUM WITH HERNIA SAC, EXCISION: PORTION OF MATURE ADIPOSE TISSUE AND FIBROUS TISSUE, CONSISTENT WITH OMENTUM AND HERNIA SAC. Electronically Signed Hazel Chaidez M.D. Gross Description Received in formalin labeled "portion of omentum with hernia sac," is a 5.0 x 4.5 x 3.5 cm poole-yellow portion of lobulated adipose tissue with attached fibromembranous tissue. Jack Frame Tender sections are submitted in one cassette. /05/06/2020 saudi/05/06/2020
== END 2020-05-06 13:19 | disposition home or self-care (01) | DRG 355 ==
LOC: FASUSAT 08:49 → UNDOADMIN 11:41 → FM/S 11:41 → FASUSAT 15:02 → FM/S 15:02
PROVIDERS: ADMIT Surgery; ATTEND Surgery
PROC: 0WUF0JZ Supplement Abdominal Wall with Synthetic Substitute, Open Approach (ICD-10-PCS; principal; 2020-05-05 11:21)
DX: K43.6 Other and unspecified ventral hernia with obstruction, without gangrene (principal); K42.0 Umbilical hernia with obstruction, without gangrene; E78.00 Pure hypercholesterolemia, unspecified; J45.909 Unspecified asthma, uncomplicated
CPT/HCPCS: 84703; 88305-TC; 94760

== ENCOUNTER 2021-01-20 11:49 | Inpatient (IN) | payer OTHER ==
[2021-01-20 11:59] VITALS: BMI 31.6
[2021-01-20] MEDS ORDERED: LACTATED RINGERS SOLUTION 1000 ML INFUS.BAG IV ONE (12:25)
[2021-01-20] MEDS ORDERED: morphine CARPU-JECT 4 MG/1 ML DISP.SYRIN IVPUSH ONE (12:32)
[2021-01-20] MEDS ORDERED: ACETAMINOPHEN 1000 MG/100 ML VIAL (NON FORMULARY) IVPB ONE (12:42)
[2021-01-20 13:17] LABS: BASO % 0.2 % (0-2.0); EOS % 0.2 % (0-4.5); HEMATOCRIT 36.5 % (32.4-45.2); HEMOGLOBIN 12.3 GM/dL (10.7-15.3); MCH 30.1 pg (25.7-33.7); MCHC 33.8 g/dl (32.0-36.0); MEAN CELL VOLUME 88.9 fl (80-96); MEAN PLT VOLUME 8.5 fl (7.5-11.1); MONO % 7.3 % (3.8-10.2); NEUT % 81.3 % (42.8-82.8); PLATELET COUNT 219 K/MM3 (134-434); RBC 4.11 M/mm3 (3.60-5.2); RDW 13.8 % (11.6-15.6)
[2021-01-20 13:24] LABS: INR 1.09 (0.83-1.09); PROTHROMBIN TIME (PATIENT) 13.4 SEC (9.7-13.0)
[2021-01-20 13:27] LABS: ACTIVATED PTT 26.2 SECONDS (25.2-36.5)
[2021-01-20 13:28] LABS: CALCIUM 9.4 mg/dL (8.5-10.1)
[2021-01-20 13:29] LABS: ALBUMIN 3.4 g/dl (3.4-5.0); BLOOD UREA NITROGEN 8.9 mg/dL (7-18)
[2021-01-20 13:33] LABS: BILIRUBIN,TOTAL 0.7 mg/dL (0.2-1)
[2021-01-20 13:34] LABS: TOT PROT 7.5 g/dl (6.4-8.2)
[2021-01-20] MEDS ORDERED: morphine SULFATE 4 MG/ML VIAL ONE (13:41)
[2021-01-20] MEDS ORDERED: ACETAMINOPHEN INJECTION 100 ML IVPB ONE (13:42)
[2021-01-20 15:23] LABS: HCG,QUALITATIVE URINE Negative
[2021-01-20 15:25] LABS: EPI CELLS 5 /uL (0-25.1); HYALINE CASTS 0 /uL (0-3.1); URINE APPEARANCE CLEAR; URINE BACTERIA 146 /uL (0-1359); URINE BILIRUBIN NEGATIVE (NEGATIVE); URINE COLOR YELLOW; URINE GLUCOSE (UA) NEGATIVE (NEGATIVE); URINE KETONE NEGATIVE (NEGATIVE); URINE LEUK ESTERASE NEGATIVE (NEGATIVE); URINE NITRITE NEGATIVE (NEGATIVE); URINE PROTEIN NEGATIVE (NEGATIVE); URINE RBC 7 /uL (0-23.9); URINE UROBILINOGEN 0.2 mg/dL (0.2-1.0); URINE WBC 2 /uL (0-25.8)
[2021-01-20] MEDS ORDERED: CEFAZOLIN 1 GM in DEXTROSE 5%-WATER - 50 ML IVPB ONE (15:31)
[2021-01-20] MEDS ORDERED: PROPOFOL 20 ML ONE (17:23)
[2021-01-20] MEDS ORDERED: MIDAZOLAM HCL 2 MG/2 ML SINGLE DOSE VIAL ONE (17:23)
[2021-01-20] MEDS ORDERED: ROCURONIUM BROMIDE 100 MG/10 ML VIAL ONE (17:23)
[2021-01-20] MEDS ORDERED: LIDOCAINE HCL/PF 2% SDV 5ML VIAL ONE (17:24)
[2021-01-20] MEDS ORDERED: CEFAZOLIN 1 GM/D5W 1 GM/50 ML BAG ONE (17:32)
[2021-01-20] MEDS ORDERED: LACTATED RINGERS SOLUTION 1,000 ML IV SCH ×2 (18:00→20:00)
[2021-01-20] MEDS ORDERED: ceFAZolin SODIUM 1 GM VIAL IVPB ONE (18:00)
[2021-01-20] MEDS ORDERED: ALBUTEROL SO4 HFA INHALER IH PRN ×2 (18:01→20:25)
[2021-01-20] MEDS ORDERED: ACETAMINOPHEN 1000 MG/100 ML VIAL (NON FORMULARY) IVPB PRN (18:01)
[2021-01-20] MEDS ORDERED: ceFAZolin SODIUM 1 GM VIAL ONE (18:24)
[2021-01-20] MEDS ORDERED: ALBUTEROL SO4 HFA INHALER IH ONE (18:37)
[2021-01-20] MEDS ORDERED: NEOSTIGMINE METHYLSULFATE 0.5 MG/ML - 10 ML MDV ONE (18:57)
[2021-01-20] MEDS ORDERED: GLYCOPYRROLATE 0.2 MG/1 ML VIAL ONE (18:57)
[2021-01-20] MEDS ORDERED: ONDANSETRON 4 MG/2 ML VIAL IVPUSH PRN ×2 (19:50→20:25)
[2021-01-20] MEDS: HEPARIN NA (PORCINE) 5,000 UNITS/ML 1ML VIAL SQ SCH (21:32)
[2021-01-20] MEDS: LACTATED RINGERS SOLUTION 1,000 ML IV SCH (21:32)
[2021-01-20] MEDS: morphine SULFATE 4 MG/ML VIAL IVPUSH PRN (21:33)
[2021-01-20] MEDS: ACETAMINOPHEN 1000 MG/100 ML VIAL (NON FORMULARY) IVPB SCH (22:46)
[2021-01-21] MEDS: morphine SULFATE 4 MG/ML VIAL IVPUSH PRN ×3 (05:33→20:40)
[2021-01-21] MEDS: ACETAMINOPHEN 1000 MG/100 ML VIAL (NON FORMULARY) IVPB SCH ×2 (05:34→11:02)
[2021-01-21 07:35] LABS: BASO % 0.1 % (0-2.0); HEMATOCRIT 34.9 % (32.4-45.2); HEMOGLOBIN 11.9 GM/dL (10.7-15.3); LYMPH % 13.8 % (8-40); MCH 30.4 pg (25.7-33.7); MEAN CELL VOLUME 89.4 fl (80-96); MEAN PLT VOLUME 8.8 fl (7.5-11.1); MONO % 4.8 % (3.8-10.2); NEUT % 81.3 % (42.8-82.8); PLATELET COUNT 206 K/MM3 (134-434); RBC 3.91 M/mm3 (3.60-5.2); RDW 13.8 % (11.6-15.6); WHITE BLOOD COUNT 7.9 K/mm3 (4.0-10.0)
[2021-01-21 07:51] LABS: ALBUMIN 2.9 g/dl (3.4-5.0); BLOOD UREA NITROGEN 7.2 mg/dL (7-18); CALCIUM 8.8 mg/dL (8.5-10.1); MAGNESIUM 1.8 mg/dL (1.8-2.4)
[2021-01-21 07:54] LABS: CREATININE 0.9 mg/dL (0.55-1.3); PHOSPHOROUS 3.4 mg/dL (2.5-4.9)
[2021-01-21 07:56] LABS: BILIRUBIN,TOTAL 0.5 mg/dL (0.2-1); TOT PROT 6.7 g/dl (6.4-8.2)
[2021-01-21] MEDS: LACTATED RINGERS SOLUTION 1,000 ML IV SCH ×4 (08:02→23:20)
[2021-01-21] MEDS: HEPARIN NA (PORCINE) 5,000 UNITS/ML 1ML VIAL SQ SCH ×2 (09:08→21:12)
[2021-01-21] MEDS: traMADol HCL 50 MG TABLET PO PRN ×2 (09:39→16:33)
[2021-01-21] MEDS: ROSUVASTATIN CA 10 MG TABLET (FP) PO SCH (21:13)
[2021-01-22] MEDS: morphine SULFATE 4 MG/ML VIAL IVPUSH PRN ×2 (03:05→09:11)
[2021-01-22] MEDS: LACTATED RINGERS SOLUTION 1,000 ML IV SCH ×2 (06:23→12:03)
[2021-01-22 08:06] LABS: BASO % 0.4 % (0-2.0); EOS % 2.9 % (0-4.5); HEMATOCRIT 32.6 % (32.4-45.2); HEMOGLOBIN 10.8 GM/dL (10.7-15.3); LYMPH % 32.1 % (8-40); MCH 30.5 pg (25.7-33.7); MCHC 33.2 g/dl (32.0-36.0); MEAN CELL VOLUME 91.9 fl (80-96); MEAN PLT VOLUME 8.9 fl (7.5-11.1); NEUT % 56.6 % (42.8-82.8); PLATELET COUNT 177 K/MM3 (134-434); RBC 3.54 M/mm3 (3.60-5.2); RDW 13.9 % (11.6-15.6); WHITE BLOOD COUNT 4.7 K/mm3 (4.0-10.0)
[2021-01-22 08:07] LABS: CALCIUM 8.5 mg/dL (8.5-10.1)
[2021-01-22 08:10] LABS: BLOOD UREA NITROGEN 7.1 mg/dL (7-18)
[2021-01-22 08:11] LABS: PHOSPHOROUS 2.3 mg/dL (2.5-4.9)
[2021-01-22 08:12] LABS: BILIRUBIN,TOTAL 0.5 mg/dL (0.2-1); TOT PROT 6.3 g/dl (6.4-8.2)
[2021-01-22 08:13] LABS: CREATININE 0.9 mg/dL (0.55-1.3)
[2021-01-22] MEDS: HEPARIN NA (PORCINE) 5,000 UNITS/ML 1ML VIAL SQ SCH ×2 (09:10→21:54)
[2021-01-22] MEDS: ACETAMINOPHEN 1000 MG/100 ML VIAL (NON FORMULARY) IVPB PRN (13:29)
[2021-01-22] MEDS: ROSUVASTATIN CA 10 MG TABLET (FP) PO SCH (21:54)
[2021-01-22] MEDS ORDERED: PT OWN MED DRAWER 7, Y5N ONE (22:01)
[2021-01-22] MEDS ORDERED: BENZOCAINE/MENTH/CETYLPYRD CL 1 EACH LOZENGE MM PRN (23:08)
[2021-01-23] MEDS: ACETAMINOPHEN 1000 MG/100 ML VIAL (NON FORMULARY) IVPB PRN (03:19)
[2021-01-23 08:08] LABS: BASO % 0.4 % (0-2.0); EOS % 2.9 % (0-4.5); HEMATOCRIT 34.2 % (32.4-45.2); HEMOGLOBIN 11.3 GM/dL (10.7-15.3); LYMPH % 30.9 % (8-40); MCH 29.7 pg (25.7-33.7); MCHC 33.1 g/dl (32.0-36.0); MEAN PLT VOLUME 9.3 fl (7.5-11.1); MONO % 9.2 % (3.8-10.2); NEUT % 56.6 % (42.8-82.8); PLATELET COUNT 191 K/MM3 (134-434); RDW 13.3 % (11.6-15.6); WHITE BLOOD COUNT 4.2 K/mm3 (4.0-10.0)
[2021-01-23 08:21] LABS: ALBUMIN 3.2 g/dl (3.4-5.0); BLOOD UREA NITROGEN 6.4 mg/dL (7-18); CALCIUM 8.5 mg/dL (8.5-10.1)
[2021-01-23 08:25] LABS: CREATININE 0.9 mg/dL (0.55-1.3)
[2021-01-23 08:26] LABS: BILIRUBIN,TOTAL 0.6 mg/dL (0.2-1); TOT PROT 6.7 g/dl (6.4-8.2)
[2021-01-23] MEDS: morphine SULFATE 4 MG/ML VIAL IVPUSH PRN ×3 (08:53→21:41)
[2021-01-23] MEDS: HEPARIN NA (PORCINE) 5,000 UNITS/ML 1ML VIAL SQ SCH ×2 (09:00→21:24)
[2021-01-23] MEDS: LACTATED RINGERS SOLUTION 1,000 ML IV SCH (12:58)
[2021-01-23] MEDS ORDERED: amLODIPine BESYLATE 5 MG TABLET (FP) PO ONE (20:25)
[2021-01-23] MEDS: ROSUVASTATIN CA 10 MG TABLET (FP) PO SCH (21:24)
[2021-01-24] MEDS ORDERED: ACETAMINOPHEN 1000 MG/100 ML VIAL (NON FORMULARY) IVPB ONE (00:43)
[2021-01-24] MEDS: morphine SULFATE 4 MG/ML VIAL IVPUSH PRN ×2 (04:57→09:38)
[2021-01-24 07:57] LABS: BASO % 0.4 % (0-2.0); LYMPH % 26.9 % (8-40); MCH 29.8 pg (25.7-33.7); MCHC 33.3 g/dl (32.0-36.0); MEAN CELL VOLUME 89.7 fl (80-96); MEAN PLT VOLUME 9.3 fl (7.5-11.1); MONO % 8.5 % (3.8-10.2); NEUT % 61.2 % (42.8-82.8); PLATELET COUNT 209 K/MM3 (134-434); RBC 4.02 M/mm3 (3.60-5.2); RDW 13.2 % (11.6-15.6); WHITE BLOOD COUNT 5.1 K/mm3 (4.0-10.0)
[2021-01-24 08:13] LABS: ALBUMIN 3.1 g/dl (3.4-5.0); CALCIUM 8.9 mg/dL (8.5-10.1)
[2021-01-24 08:17] LABS: CREATININE 0.9 mg/dL (0.55-1.3); PHOSPHOROUS 3.1 mg/dL (2.5-4.9)
[2021-01-24 08:18] LABS: BILIRUBIN,TOTAL 0.9 mg/dL (0.2-1)
[2021-01-24] MEDS: HEPARIN NA (PORCINE) 5,000 UNITS/ML 1ML VIAL SQ SCH ×2 (09:35→21:15)
[2021-01-24] MEDS: ROSUVASTATIN CA 10 MG TABLET (FP) PO SCH (21:15)
[2021-01-24 22:27] VITALS: BP 150/90; PULSE 77; TEMP 99.2
== END 2021-01-24 21:40 | disposition short-term general hospital (02) | DRG 341 ==
LOC: JER 11:49 → JERBED 16:11 → J4S 21:20
PROVIDERS: ADMIT Internal Medicine; ATTEND Internal Medicine
PROC: 0DTJ0ZZ Resection of Appendix, Open Approach (ICD-10-PCS; principal; 2021-01-20 17:30)
DX: K35.80 Unspecified acute appendicitis (principal); K56.2 Volvulus; J45.909 Unspecified asthma, uncomplicated
CPT/HCPCS: 36415; 74019-TC-FY; 74177-TC; 74178-TC; 76830-TC; 80053; 81003; 83735; 84100; 84703; 85025; 85610; 85730; 86140; 87086; 88304-TC; 93005; 93010; 94010; 94760; 97116-GP; 97161-GP; 99285-25; C9803; J0131; J1644; Q9967; U0003; U0005

== ENCOUNTER 2021-02-01 16:18 | Emergency (ER) | payer OTHER ==
[2021-02-01 16:34] VITALS: TEMP 98.7; BMI 29.0
[2021-02-01] MEDS ORDERED: SODIUM CHLORIDE IV ONE (17:29)
[2021-02-01] MEDS ORDERED: IBUPROFEN 400 MG TABLET (FP) PO ONE ×2 (18:46→18:58)
[2021-02-01 19:25] LABS: BASO % 0.2 % (0-2.0); EOS % 2.1 % (0-4.5); HEMOGLOBIN 10.9 GM/dL (10.7-15.3); LYMPH % 18.5 % (8-40); MCH 29.5 pg (25.7-33.7); MCHC 32.9 g/dl (32.0-36.0); MEAN CELL VOLUME 89.6 fl (80-96); MEAN PLT VOLUME 9.6 fl (7.5-11.1); MONO % 7.5 % (3.8-10.2); NEUT % 71.7 % (42.8-82.8); PLATELET COUNT 264 K/MM3 (134-434); RBC 3.69 M/mm3 (3.60-5.2); RDW 13.7 % (11.6-15.6); WHITE BLOOD COUNT 9.1 K/mm3 (4.0-10.0)
[2021-02-01 19:32] LABS: INR 1.09 (0.83-1.09); PROTHROMBIN TIME (PATIENT) 13.4 SEC (9.7-13.0)
[2021-02-01 19:35] LABS: ACTIVATED PTT 25.4 SECONDS (25.2-36.5); CHLORIDE 103 mmol/L (98-107); SODIUM 137 mmol/L (136-145)
[2021-02-01 19:37] LABS: ALBUMIN 3.3 g/dl (3.4-5.0); CALCIUM 9.3 mg/dL (8.5-10.1)
[2021-02-01 19:38] LABS: ANION GAP 9 MMOL/L (8-16); BLOOD UREA NITROGEN 8.1 mg/dL (7-18); CO2 25 mmol/L (21-32); GLUCOSE,RANDOM 91 mg/dL (74-106)
[2021-02-01 19:41] LABS: CREATININE 0.8 mg/dL (0.55-1.3); SGOT/AST 19 U/L (15-37); SGPT/ALT 30 U/L (13-61)
[2021-02-01 19:42] LABS: BILIRUBIN,TOTAL 0.5 mg/dL (0.2-1); TOT PROT 7.7 g/dl (6.4-8.2)
[2021-02-01 19:43] LABS: ALK PHOS 61 U/L (45-117)
[2021-02-01 20:12] LABS: URINE APPEARANCE Clear; URINE BILIRUBIN Negative (NEGATIVE); URINE COLOR Yellow; URINE GLUCOSE (UA) Negative (NEGATIVE); URINE KETONE Negative (NEGATIVE); URINE LEUK ESTERASE Trace (NEGATIVE); URINE NITRITE Negative (NEGATIVE); URINE PROTEIN Negative (NEGATIVE); URINE UROBILINOGEN 0.2 mg/dL (0.2-1.0)
[2021-02-01] MEDS ORDERED: SULFAMETHOXAZOLE/TRIMETHOPRIM 800MG/160MG D.S. TABLET PO ONE (21:18)
[2021-02-01] MEDS ORDERED: SULFAMETHOXAZOLE/TRIMETHOPRIM 800MG/160MG D.S. TABLET ONE (21:21)
[2021-02-01 21:28] VITALS: BP 144/78; PULSE 72
[2021-02-01 22:21] LABS: EPI CELLS FEW /HPF; URINE BACTERIA FEW /hpf (NEGATIVE); URINE RBC 0 /hpf (0-4); URINE WBC 0-5 (NEGATIVE)
== END 2021-02-01 21:27 | disposition home or self-care (01) ==
LOC: JER 16:18
PROC: 3E0337Z Introduction of Electrolytic and Water Balance Substance into Peripheral Vein, Percutaneous Approach (ICD-10-PCS; principal; 2021-02-01)
DX: R10.9 Unspecified abdominal pain (principal); T81.40XA Infection following a procedure, unspecified, initial encounter
CPT/HCPCS: 36415; 71045-TC-FY; 74177-TC; 80053; 81003; 83605; 84484; 84703; 85025; 85610; 85730; 86850; 86900; 86901; 87040; 87086; 87186; 93005; 93010; 99285-25; C9803; Q9967; U0003; U0005

== ENCOUNTER 2021-02-17 12:54 | Emergency (ER) | payer OTHER ==
[2021-02-17 13:30] VITALS: BP 139/84; PULSE 76; TEMP 98.2; BMI 29.0
[2021-02-17] MEDS ORDERED: BACITRACIN 15 GM TUBE TOPICAL OINTMENT ONE (14:08)
[2021-02-17] MEDS ORDERED: BACITRACIN 15 GM TUBE TOPICAL OINTMENT TP ONE (14:16)
== END 2021-02-17 14:17 | disposition home or self-care (01) ==
LOC: JER 12:54
DX: T81.31XA Disruption of external operation (surgical) wound, not elsewhere classified, initial encounter (principal)
CPT/HCPCS: 99283-25

== ENCOUNTER 2021-02-20 00:13 | Inpatient (IN) | payer OTHER ==
[2021-02-20] MEDS ORDERED: ACETAMINOPHEN 1000 MG/100 ML VIAL (NON FORMULARY) IVPB ONE (02:23)
[2021-02-20 03:12] LABS: BASO % 0.5 % (0-2.0); EOS % 2.9 % (0-4.5); HEMATOCRIT 33.7 % (32.4-45.2); HEMOGLOBIN 11.1 GM/dL (10.7-15.3); LYMPH % 28.8 % (8-40); MEAN CELL VOLUME 87.8 fl (80-96); MEAN PLT VOLUME 8.4 fl (7.5-11.1); MONO % 8.9 % (3.8-10.2); NEUT % 58.9 % (42.8-82.8); PLATELET COUNT 178 10^3/uL (134-434); RBC 3.84 M/mm3 (3.60-5.2); RDW 13.7 % (11.6-15.6); WHITE BLOOD COUNT 5.8 K/mm3 (4.0-10.0)
[2021-02-20 03:17] LABS: ALBUMIN 3.6 g/dl (3.4-5.0); BLOOD UREA NITROGEN 9.2 mg/dL (7-18); CALCIUM 9.9 mg/dL (8.5-10.1)
[2021-02-20 03:22] LABS: BILIRUBIN,TOTAL 0.5 mg/dL (0.2-1); TOT PROT 7.7 g/dl (6.4-8.2)
[2021-02-20] MEDS ORDERED: VANCOMYCIN/WATER 1,250 MG/250 ML BAG IVPB ONE (05:23)
[2021-02-20] MEDS ORDERED: LACTATED RINGERS SOLUTION 1,000 ML/1,000 ML INFUS.BAG IV SCH (05:30)
[2021-02-20] MEDS ORDERED: DOXYCYCLINE INJECTION 100 MG in DEXTROSE 5%-WATER 100 ML IVPB SCH (10:00)
[2021-02-20] MEDS ORDERED: MORPHINE SULFATE 2 MG/ML VIAL IVPUSH ONE (10:11)
[2021-02-20] MEDS ORDERED: ACETAMINOPHEN 500 MG TABLET (FP) ONE (10:50)
[2021-02-20] MEDS: ACETAMINOPHEN 500 MG TABLET (FP) PO PRN ×2 (11:01→21:45)
[2021-02-20] MEDS ORDERED: MORPHINE SULFATE 2 MG/ML VIAL ONE (11:58)
[2021-02-20] MEDS ORDERED: MORPHINE SULFATE 2 MG/ML VIAL IM PRN (14:26)
[2021-02-20] MEDS: MORPHINE SULFATE 2 MG/ML VIAL IV PRN (15:48)
[2021-02-20] MEDS: HEPARIN NA (PORCINE) 5,000 UNITS/ML 1ML VIAL SQ SCH ×2 (15:49→21:33)
[2021-02-20] MEDS ORDERED: AZTREONAM 1 GM VIAL (RESTRICTED TO ID) ONE (16:37)
[2021-02-20] MEDS ORDERED: DEXTROSE 5%-WATER - 50 ML IVPB ONE (16:38)
[2021-02-20] MEDS: AZTREONAM 1 GM in DEXTROSE 5%-WATER - 50 ML IVPB SCH ×2 (16:54→17:16)
[2021-02-20] MEDS: VANCOMYCIN 1 GRAM (PRE-DOCKED) 1,000 MG/250 ML BAG IVPB SCH (16:55)
[2021-02-20 18:39] VITALS: BMI 29.8
[2021-02-21] MEDS ORDERED: DEXTROSE 5%-WATER - 50 ML IVPB ONE ×3 (01:08→17:58)
[2021-02-21] MEDS ORDERED: AZTREONAM 1 GM VIAL (RESTRICTED TO ID) ONE ×3 (01:08→17:58)
[2021-02-21] MEDS: AZTREONAM 1 GM in DEXTROSE 5%-WATER - 50 ML IVPB SCH ×3 (01:55→18:00)
[2021-02-21] MEDS: VANCOMYCIN 1 GRAM (PRE-DOCKED) 1,000 MG/250 ML BAG IVPB SCH ×2 (03:35→16:07)
[2021-02-21] MEDS: HEPARIN NA (PORCINE) 5,000 UNITS/ML 1ML VIAL SQ SCH ×3 (05:42→22:00)
[2021-02-21] MEDS: MORPHINE SULFATE 2 MG/ML VIAL IV PRN ×2 (06:41→16:08)
[2021-02-21 08:32] LABS: INR 1.07 (0.83-1.09); PROTHROMBIN TIME (PATIENT) 13.1 SEC (9.7-13.0)
[2021-02-21 08:40] LABS: HEMOGLOBIN 10.6 GM/dL (10.7-15.3); MCH 28.4 pg (25.7-33.7); MCHC 32.2 g/dl (32.0-36.0); MEAN CELL VOLUME 88.2 fl (80-96); MEAN PLT VOLUME 8.6 fl (7.5-11.1); PLATELET COUNT 160 10^3/uL (134-434); RBC 3.74 M/mm3 (3.60-5.2); RDW 13.6 % (11.6-15.6); WHITE BLOOD COUNT 3.3 K/mm3 (4.0-10.0)
[2021-02-21 09:04] LABS: CALCIUM 9.1 mg/dL (8.5-10.1); MAGNESIUM 2.1 mg/dL (1.8-2.4)
[2021-02-21 09:09] LABS: BILIRUBIN,TOTAL 0.8 mg/dL (0.2-1); BLOOD UREA NITROGEN 8.1 mg/dL (7-18); CREATININE 0.9 mg/dL (0.55-1.3); PHOSPHOROUS 2.6 mg/dL (2.5-4.9)
[2021-02-21 09:11] LABS: TOT PROT 6.6 g/dl (6.4-8.2)
[2021-02-21] MEDS ORDERED: PROPOFOL 20 ML ONE ×2 (13:48→13:57)
[2021-02-21] MEDS ORDERED: MIDAZOLAM HCL 2 MG/2 ML SINGLE DOSE VIAL ONE (13:48)
[2021-02-21] MEDS ORDERED: SUCCINYLCHOLINE CHLORIDE 200 MG/10 ML SYRINGE ONE (13:53)
[2021-02-21] MEDS ORDERED: ONDANSETRON 4 MG/2 ML VIAL IVPUSH PRN (14:31)
[2021-02-21] MEDS ORDERED: ONDANSETRON 4 MG/2 ML VIAL ONE (15:30)
[2021-02-21] MEDS: ONDANSETRON 4 MG/2 ML VIAL IVPUSH PRN (15:32)
[2021-02-21] MEDS: ROSUVASTATIN CA 10 MG TABLET (FP) PO SCH (21:59)
[2021-02-21] MEDS: ACETAMINOPHEN 500 MG TABLET (FP) PO PRN (22:00)
[2021-02-22] MEDS ORDERED: DEXTROSE 5%-WATER - 50 ML IVPB ONE ×3 (01:00→18:25)
[2021-02-22] MEDS ORDERED: AZTREONAM 1 GM VIAL (RESTRICTED TO ID) ONE ×3 (01:00→18:25)
[2021-02-22] MEDS: MORPHINE SULFATE 2 MG/ML VIAL IV PRN ×3 (01:14→21:09)
[2021-02-22] MEDS: AZTREONAM 1 GM in DEXTROSE 5%-WATER - 50 ML IVPB SCH ×3 (02:23→18:28)
[2021-02-22] MEDS: VANCOMYCIN 1 GRAM (PRE-DOCKED) 1,000 MG/250 ML BAG IVPB SCH ×2 (03:12→15:50)
[2021-02-22] MEDS: HEPARIN NA (PORCINE) 5,000 UNITS/ML 1ML VIAL SQ SCH ×3 (05:33→22:02)
[2021-02-22] MEDS: ACETAMINOPHEN 500 MG TABLET (FP) PO PRN (05:39)
[2021-02-22 09:03] LABS: BASO % 0.3 % (0-2.0); EOS % 0.6 % (0-4.5); HEMATOCRIT 35.8 % (32.4-45.2); HEMOGLOBIN 11.4 GM/dL (10.7-15.3); LYMPH % 26.9 % (8-40); MCH 28.2 pg (25.7-33.7); MEAN CELL VOLUME 88.1 fl (80-96); MEAN PLT VOLUME 8.9 fl (7.5-11.1); MONO % 10.6 % (3.8-10.2); NEUT % 61.6 % (42.8-82.8); PLATELET COUNT 180 10^3/uL (134-434); RBC 4.06 M/mm3 (3.60-5.2); RDW 13.4 % (11.6-15.6); WHITE BLOOD COUNT 5.8 K/mm3 (4.0-10.0)
[2021-02-22] MEDS ORDERED: ROSUVASTATIN CA 10 MG TABLET (FP) PO SCH (10:00)
[2021-02-22 10:37] LABS: BLOOD UREA NITROGEN 8.1 mg/dL (7-18)
[2021-02-22 10:39] LABS: ALBUMIN 3.1 g/dl (3.4-5.0)
[2021-02-22 10:41] LABS: CREATININE 0.8 mg/dL (0.55-1.3)
[2021-02-22 10:43] LABS: BILIRUBIN,TOTAL 0.5 mg/dL (0.2-1)
[2021-02-22] MEDS ORDERED: HEPARIN NA (PORCINE) 5,000 UNITS/ML 1ML VIAL IVPUSH PRN ×2 (13:36)
[2021-02-22] MEDS ORDERED: HEPARIN NA (PORCINE) 5,000 UNITS/ML 1ML VIAL IVPUSH ONE (13:36)
[2021-02-22] MEDS: ONDANSETRON 4 MG/2 ML VIAL IVPUSH PRN (14:26)
[2021-02-22] MEDS ORDERED: ONDANSETRON 4 MG/2 ML VIAL IVPB PRN (14:38)
[2021-02-22] MEDS: HEPARIN INFUSION - 25,000 UNITS/500 ML INFUS.BAG IVPB SCH (15:24)
[2021-02-22] MEDS: ROSUVASTATIN CA 10 MG TABLET (FP) PO SCH (21:09)
[2021-02-23] MEDS ORDERED: DEXTROSE 5%-WATER - 50 ML IVPB ONE ×3 (00:48→17:07)
[2021-02-23] MEDS ORDERED: AZTREONAM 1 GM VIAL (RESTRICTED TO ID) ONE ×3 (00:48→17:07)
[2021-02-23] MEDS: AZTREONAM 1 GM in DEXTROSE 5%-WATER - 50 ML IVPB SCH ×3 (01:31→18:34)
[2021-02-23] MEDS: VANCOMYCIN 1 GRAM (PRE-DOCKED) 1,000 MG/250 ML BAG IVPB SCH ×2 (03:34→17:10)
[2021-02-23] MEDS: ACETAMINOPHEN 500 MG TABLET (FP) PO PRN ×3 (04:51→23:30)
[2021-02-23] MEDS: HEPARIN NA (PORCINE) 5,000 UNITS/ML 1ML VIAL SQ SCH ×3 (05:52→22:09)
[2021-02-23 09:09] LABS: HEMATOCRIT 31.6 % (32.4-45.2); HEMOGLOBIN 10.5 GM/dL (10.7-15.3); MCH 29.2 pg (25.7-33.7); MCHC 33.3 g/dl (32.0-36.0); MEAN CELL VOLUME 87.6 fl (80-96); MEAN PLT VOLUME 8.7 fl (7.5-11.1); PLATELET COUNT 159 10^3/uL (134-434); RDW 13.7 % (11.6-15.6); WHITE BLOOD COUNT 4.5 K/mm3 (4.0-10.0)
[2021-02-23 09:26] LABS: CALCIUM 8.3 mg/dL (8.5-10.1)
[2021-02-23 09:27] LABS: ALBUMIN 2.9 g/dl (3.4-5.0); BLOOD UREA NITROGEN 7.2 mg/dL (7-18)
[2021-02-23 09:32] LABS: BILIRUBIN,TOTAL 0.6 mg/dL (0.2-1); TOT PROT 6.5 g/dl (6.4-8.2)
[2021-02-23] MEDS: HEPARIN INFUSION - 25,000 UNITS/500 ML INFUS.BAG IVPB SCH ×2 (10:30→15:09)
[2021-02-23] MEDS: ROSUVASTATIN CA 10 MG TABLET (FP) PO SCH (22:10)
[2021-02-24] MEDS ORDERED: DEXTROSE 5%-WATER - 50 ML IVPB ONE ×2 (02:08→09:27)
[2021-02-24] MEDS ORDERED: AZTREONAM 1 GM VIAL (RESTRICTED TO ID) ONE ×2 (02:08→09:27)
[2021-02-24] MEDS: HEPARIN INFUSION - 25,000 UNITS/500 ML INFUS.BAG IVPB SCH ×2 (02:56→14:46)
[2021-02-24] MEDS: AZTREONAM 1 GM in DEXTROSE 5%-WATER - 50 ML IVPB SCH ×2 (03:01→10:11)
[2021-02-24] MEDS: VANCOMYCIN 1 GRAM (PRE-DOCKED) 1,000 MG/250 ML BAG IVPB SCH (04:38)
[2021-02-24] MEDS: HEPARIN NA (PORCINE) 5,000 UNITS/ML 1ML VIAL SQ SCH ×2 (06:39→14:46)
[2021-02-24 09:06] LABS: HEMATOCRIT 32.7 % (32.4-45.2); HEMOGLOBIN 10.8 GM/dL (10.7-15.3); MCH 28.9 pg (25.7-33.7); MCHC 33.1 g/dl (32.0-36.0); MEAN CELL VOLUME 87.3 fl (80-96); MEAN PLT VOLUME 8.8 fl (7.5-11.1); PLATELET COUNT 158 10^3/uL (134-434); RBC 3.75 M/mm3 (3.60-5.2); RDW 13.9 % (11.6-15.6); WHITE BLOOD COUNT 4.2 K/mm3 (4.0-10.0)
[2021-02-24 09:31] LABS: CALCIUM 8.6 mg/dL (8.5-10.1)
[2021-02-24 09:33] LABS: ALBUMIN 2.9 g/dl (3.4-5.0)
[2021-02-24 09:36] LABS: CREATININE 0.8 mg/dL (0.55-1.3)
[2021-02-24 09:38] LABS: BILIRUBIN,TOTAL 0.6 mg/dL (0.2-1); TOT PROT 6.6 g/dl (6.4-8.2)
[2021-02-24 10:42] VITALS: BP 136/76; PULSE 72; TEMP 98.3
[2021-02-24] MEDS: ACETAMINOPHEN 500 MG TABLET (FP) PO PRN (11:20)
== END 2021-02-24 15:35 | disposition home or self-care (01) | DRG 856 ==
LOC: JER 00:13 → JERBED 05:41 → J5S 12:24
PROVIDERS: ADMIT Internal Medicine; ATTEND Internal Medicine
PROC: 0W9F0ZX Drainage of Abdominal Wall, Open Approach, Diagnostic (ICD-10-PCS; principal; 2021-02-21 13:00)
DX: T81.41XA Infection following a procedure, superficial incisional surgical site, initial encounter (principal); K55.059 Acute (reversible) ischemia of intestine, part and extent unspecified; L02.211 Cutaneous abscess of abdominal wall; B96.6 Bacteroides fragilis [B. fragilis] as the cause of diseases classified elsewhere; E78.5 Hyperlipidemia, unspecified; J45.20 Mild intermittent asthma, uncomplicated
CPT/HCPCS: 36415; 74177-TC; 80053; 80061; 82272; 83605; 83721; 83735; 84100; 84703; 85025; 85027; 85610; 85730; 87040; 87070; 87076; 87205; 93005; 93010; 94760; 99285-25; C9803; G0480; J0131; J1644; Q9967; U0003; U0005